=== PATIENT | male | born 1940 | race Two or more races ===

== ENCOUNTER 2021-04-29 13:49 | Inpatient (IN) | payer MEDICARE, OTHER, SELFPAY ==
[2021-04-29] VITALS (12 sets, daily range): BP systolic 90–139; BP diastolic 42–83; PULSE 64–84; RESP 12–24; TEMP 36.3–36.4; O2SAT 94–100; BMI 28.9; BMI 26.6
--- NOTE | ~2021-04-29 | CT_ITS ---
EXAMINATION: CT HEAD WITHOUT CONTRAST CLINICAL INFORMATION: Altered mental status COMPARISON: None. TECHNIQUE: Contiguous axial imaging was performed from the skull base to vertex without intravenous contrast. This CT examination was performed using dose optimization techniques as appropriate, variously including the following: * Automated exposure control * Adjustment of mA and/or kV according to patient size (this includes techniques or standardized protocols for targeted exams where dose is matched to indication/reason for exam; i.e. extremities or head) Use of iterative reconstruction technique DLP: 785 mGy-cm. FINDINGS: There is no evidence of acute intracranial hemorrhage or territorial infarction. No abnormal mass effect or midline shift is seen. Baig to white matter differentiation is well preserved. No extra-axial fluid collections are identified. No hydrocephalus. Proportional prominence of the ventricles and sulcal spaces is consistent with mild volume loss. Patchy periventricular and deep white matter hypoattenuation is consistent with mild small vessel ischemic changes. The osseous structures and soft tissues are normal. The mastoid air cells and visualized portions of the paranasal sinuses are well aerated. CT/CT head/brain wo con IMPRESSION: No acute intracranial pathology. Mild volume loss and small vessel ischemic change.
--- NOTE | ~2021-04-29 | XR_ITS ---
EXAMINATION: XR CHEST CLINICAL INFORMATION: Altered mental status COMPARISON: None TECHNIQUE: Frontal view of the chest was obtained. FINDINGS: The lungs are well expanded. There is no focal consolidation, edema, or effusion. Bronchial wall thickening noted throughout. No pneumothorax. The cardiomediastinal silhouette is within normal limits of size with a calcified aorta. No acute osseous abnormality. XR/XR chest 1V IMPRESSION: No consolidation. Bronchial wall thickening can be seen with a small airways process such as asthma or atypical/viral infection.
--- NOTE | 2021-04-29 13:56 | ECG_ITS ---
Test Reason : UNRESPONSIVE Blood Pressure : / mmHG Vent. Rate : 059 BPM Atrial Rate : 000 BPM P-R Int : 000 ms QRS Dur : 084 ms QT Int : 476 ms P-R-T Axes : 000 006 -02 degrees QTc Int : 471 ms Atrial fibrillation with slow ventricular response Low voltage QRS Nonspecific T wave abnormality Inferior leads Abnormal ECG no previous ekg Referred By: Renata Higginbotham Electronically Signed By:CHELLE COELLO MD
--- NOTE | 2021-04-29 14:04 | ED_ITS ---
HPI - Altered Mental Status General Chief Complaint: General Medical Stated Complaint: ?overdose Time Seen by Provider: 04/29/21 13:55 Source: EMS Mode of arrival: EMS Limitations: altered mental status History of Present Illness complaint: altered mental status Onset (ago): unknown (sometime this AM after taking medications) Timing confirmed by: family member ( told EMS ) Severity: severe Consistency of symptoms: constant Context: other (was reportedly not well last night and then took AM medications since then unable to wake him up EMS called this afternoon) Associated symptoms: denies other symptoms Related Data Home Medications Medication Instructions Recorded Confirmed diltiazem HCl 120 mg 120 mg PO DAILY 04/29/21 04/29/21 capsule,extended release 24 hr, controlled (DILT-XR) fluoxetine 20 mg capsule 20 mg PO DAILY 04/29/21 04/29/21 fluticasone fur. 200 mcg-umeclid 1 puff INHALATION DAILY 04/29/21 04/29/21 62.5 mcg-vilant 25 mcg inhalat.powder (Trelegy Ellipta) fluticasone propionate 50 1 spray INTRANASAL BID 04/29/21 04/29/21 mcg/actuation nasal spray,suspension levothyroxine 75 mcg tablet 75 mcg PO DAILY 04/29/21 04/29/21 metoprolol tartrate 50 mg tablet 50 mg PO BID 04/29/21 04/29/21 rivaroxaban 20 mg tablet (Xarelto) 20 mg PO BEDTIME 04/29/21 04/29/21 rosuvastatin 5 mg tablet 5 mg PO DAILY 04/29/21 04/29/21 zolpidem 10 mg tablet 10 mg PO BEDTIME PRN 04/29/21 04/29/21 Allergies Allergy/AdvReac Type Severity Reaction Status Date / Time Penicillins Allergy Unknown Unknown Verified 04/29/21 13:55 [id number] Reductase Allergy Unknown Unknown Verified 04/29/21 14:06 Inhibitor Review of Systems Review of Systems: ROS unable to be obtained due to altered mental status [facility] Past Medical History Medical History (Updated 04/29/21 @ 16:25 by Renata Higginbotham DO) Afib COPD (chronic obstructive pulmonary disease) Depression HLD (hyperlipidemia) HTN (hypertension) Social History Social History (Updated 04/29/21 @ 14:07 by Renata Higginbotham DO) Patient Tobacco Use Status: Tobacco use Unknown Use of substances other than those prescribed or required for medical reasons: Unable to respond Advance Directives: No Advance Directives Information Provided: No Physical Exam Vital Signs: Vital Signs: Last Vital Signs Temp 97.3 F 04/29/21 14:36 Pulse 84 04/29/21 16:08 Resp 24 H 04/29/21 16:08 BP 112/70 04/29/21 16:08 Pulse Ox 95 04/29/21 16:08 Body Mass Index 26.6 Appearance: Somnolent, Snoring respiration, no response to painful stimuli. Severe acute distress. Eyes: Pupils pinpoint ENT: Pharynx snoring respirations Neck: Normal inspection. Neck supple. CVS: irregular heart rate and rhythm. Pulses normal. Respiratory: No respiratory distress. Breath sounds normal. Abdomen: Soft and nontender. no signs of trauma Skin: Skin warm and dry. pale skin color. Normal skin turgor. Extremities: No lower extremity edema. Neuro: no response to verbal or tactile stimuli, snoring respirations Course Course Course Narrative: patient seems to be more responsive and responding to IV attempts he is withdrawing both RUE and LUE at this time patient waking up more to voice now and his name, he is able to produce a cough when asked still very somnolent records from [facility] requested 220pm patient is obese his IBW is 82kg - 82kg x 30cc = 2459 female [employer] business [employer] notes he has been very depressed recently and thinks he took his ambien today signed out pending he wakes up - good response to IVF patient more easily woken MDM - Altered Mental Status MDM Narrative Medical decision making narrative: 80 yo male not known to this facility per medications hx of afib, HLD, COPD on trelegy, HTN, takes ambien for sleep - comes in with being unresponsive since this AM. I am not sure of CODE status I do not have a contact number or family member present. He was sent straight to head CT for ICH. Pinpoint pupils narcan ordered. Unsure of this is toxic, ICH, metabolic or retention. Will workup for all at this time. Will attempt to reach family as well for CODE status - EMS unsure. Lab Data Result diagrams: 04/29/21 14:16 04/29/21 14:16 Labs: Lab Results 04/29/21 04/29/21 04/29/21 Range/Units 14:00 14:16 14:16 WBC 6.0 (4.8-10.8) X10*3/uL RBC 5.45 (4.60-5.80) X10*6/uL Hgb 16.8 (14.0-18.0) g/dl Hct 50.0 (42.0-52.0) % MCV 91.7 (80.0-98.0) fL MCH 30.8 (27.0-33.0) pg MCHC 33.6 (31.0-36.0) g/dl RDW 14.3 (11.0-16.0) % Plt Count 200 (160-400) X10*3/uL MPV 9.7 (9.4-12.4) fL Immature Gran % (Auto) 0.2 (0.0-0.4) % Neut % (Auto) 56.4 (45-73) % Lymph % (Auto) 28.6 (20-40) % [place] % (Auto) 11.8 H (2-11) % Eos % (Auto) 2.8 (0-4) % Baso % (Auto) 0.2 (0-2) % Lymph # (Auto) 1.7 (1.2-4.9) X10*3/uL [place] # (Auto) 0.7 (0.1-1.2) X10*3/uL Eos # (Auto) 0.2 (0.0-0.4) X10*3/uL Baso # (Auto) 0.0 (0.0-0.2) X10*3/uL Abs Immat Gran (auto) 0.01 (0.00-0.03) X10*3/uL Absolute Neuts (auto) 3.4 (2.0-8.3) x10*3/uL Absolute Nucleated RBC 0.000 (0.0-0.012) X10*3/uL Nucleated RBC % (auto) 0.0 (0.0-0.2) /100WBC O2 Saturation % ABG pH at Pt Temp (7.35-7.45) ABG pH (Temp Correct) (7.35-7.45) ABG pCO2 at Pt Temp (32-45) mmHg ABG pCO2 (Temp Corrct (32-45) mmHg ABG pO2 at Pt Temp (83-108) mmHg ABG pO2 (Temp Correct (83-108) ABG HCO3 (22-26) mmol/L ABG Base Excess (Actual) mmol/L VBG pH (7.32-7.43) VBG pCO2 mmHg VBG pO2 mmHg VBG HCO3 (22-26) mmol/L VBG O2 Saturation % VBG Base Excess mmol/L Sodium 138 (135-145) mmol/L Potassium 4.1 (3.3-5.1) mmol/L Chloride 104 (96-108) mmol/L Carbon Dioxide 29 (22-29) mmol/L Anion Gap 9 L (12-20) BUN 13 (9-16) mg/dL Creatinine 0.87 (0.5-1.4) mg/dL Estim Creat Clear Calc 77.4 Estimated GFR > 60 POC Glucose 92 (60-115) mg/dL Random Glucose 106 (60-115) mg/dL Lactic Acid (0.5-2.0) mmol/L Calcium 8.0 L (8.4-10.2) mg/dL Magnesium 2.0 (1.6-2.6) mg/dL Total Bilirubin 0.9 (0.0-1.0) mg/dL Direct Bilirubin 0.3 (0.0-0.5) mg/dL AST 24 (5-37) U/L ALT 24 (0-40) U/L Alkaline Phosphatase 61 (39-117) U/L Ammonia (13-55) umol/L Total Creatine Kinase 38 (38-174) U/L Troponin I High Sens (<3.5-35.0) ng/L B-Natriuretic Peptide (<100) pg/mL Total Protein 5.3 L (6.5-8.0) g/dL Albumin 3.4 L (3.5-5.0) g/dL Lipase 10 (8-78) U/L Urine Color Urine Appearance Urine pH (5.0-8.0) Ur Specific [place] (1.005-1.025) Urine Protein (NEG-TRACE) MG/DL Urine Glucose (UA) (NEG) MG/DL Urine Ketones (NEG) MG/DL Urine Blood (NEG) Urine Nitrite (NEG) Ur Leukocyte Esterase (NEG) Salicylates < 5.0 L (15-30) mg/dL Urine Opiates Screen (Not Detect) Urine Fentanyl Screen (Not Detect) Acetaminophen < 1 (<30) mcg/mL Ur Barbiturates Screen (Not Detect) Ur Phencyclidine Scrn (Not Detect) Ur Amphetamines Screen (Not Detect) U Benzodiazepines Scrn (Not Detect) Urine Cocaine Screen (Not Detect) U Marijuana (THC) Screen (Not Detect) Ethyl Alcohol mg/dL COVID-19 ([facility]) (Negative) COVID-19 Clin Com 04/29/21 04/29/21 04/29/21 Range/Units 14:16 14:16 14:16 WBC (4.8-10.8) X10*3/uL RBC (4.60-5.80) X10*6/uL Hgb (14.0-18.0) g/dl Hct (42.0-52.0) % MCV (80.0-98.0) fL MCH (27.0-33.0) pg MCHC (31.0-36.0) g/dl RDW (11.0-16.0) % Plt Count (160-400) X10*3/uL MPV (9.4-12.4) fL Immature Gran % (Auto) (0.0-0.4) % Neut % (Auto) (45-73) % Lymph % (Auto) (20-40) % [place] % (Auto) (2-11) % Eos % (Auto) (0-4) % Baso % (Auto) (0-2) % Lymph # (Auto) (1.2-4.9) X10*3/uL [place] # (Auto) (0.1-1.2) X10*3/uL Eos # (Auto) (0.0-0.4) X10*3/uL Baso # (Auto) (0.0-0.2) X10*3/uL Abs Immat Gran (auto) (0.00-0.03) X10*3/uL Absolute Neuts (auto) (2.0-8.3) x10*3/uL Absolute Nucleated RBC (0.0-0.012) X10*3/uL Nucleated RBC % (auto) (0.0-0.2) /100WBC O2 Saturation % ABG pH at Pt Temp (7.35-7.45) ABG pH (Temp Correct) (7.35-7.45) ABG pCO2 at Pt Temp (32-45) mmHg ABG pCO2 (Temp Corrct (32-45) mmHg ABG pO2 at Pt Temp (83-108) mmHg ABG pO2 (Temp Correct (83-108) ABG HCO3 (22-26) mmol/L ABG Base Excess (Actual) mmol/L VBG pH (7.32-7.43) VBG pCO2 mmHg VBG pO2 mmHg VBG HCO3 (22-26) mmol/L VBG O2 Saturation % VBG Base Excess mmol/L Sodium (135-145) mmol/L Potassium (3.3-5.1) mmol/L Chloride (96-108) mmol/L Carbon Dioxide (22-29) mmol/L Anion Gap (12-20) BUN (9-16) mg/dL Creatinine (0.5-1.4) mg/dL Estim Creat Clear Calc Estimated GFR POC Glucose (60-115) mg/dL Random Glucose (60-115) mg/dL Lactic Acid 0.8 (0.5-2.0) mmol/L Calcium (8.4-10.2) mg/dL Magnesium (1.6-2.6) mg/dL Total Bilirubin (0.0-1.0) mg/dL Direct Bilirubin (0.0-0.5) mg/dL AST (5-37) U/L ALT (0-40) U/L Alkaline Phosphatase (39-117) U/L Ammonia (13-55) umol/L Total Creatine Kinase (38-174) U/L Troponin I High Sens 3.7 (<3.5-35.0) ng/L B-Natriuretic Peptide 189 H (<100) pg/mL Total Protein (6.5-8.0) g/dL Albumin (3.5-5.0) g/dL Lipase (8-78) U/L Urine Color Urine Appearance Urine pH (5.0-8.0) Ur Specific [place] (1.005-1.025) Urine Protein (NEG-TRACE) MG/DL Urine Glucose (UA) (NEG) MG/DL Urine Ketones (NEG) MG/DL Urine Blood (NEG) Urine Nitrite (NEG) Ur Leukocyte Esterase (NEG) Salicylates (15-30) mg/dL Urine Opiates Screen (Not Detect) Urine Fentanyl Screen (Not Detect) Acetaminophen (<30) mcg/mL Ur Barbiturates Screen (Not Detect) Ur Phencyclidine Scrn (Not Detect) Ur Amphetamines Screen (Not Detect) U Benzodiazepines Scrn (Not Detect) Urine Cocaine Screen (Not Detect) U Marijuana (THC) Screen (Not Detect) Ethyl Alcohol mg/dL COVID-19 ([facility]) Negative (Negative) COVID-19 Clin Com See Note 04/29/21 04/29/21 04/29/21 Range/Units 14:16 14:17 14:23 WBC (4.8-10.8) X10*3/uL RBC (4.60-5.80) X10*6/uL Hgb (14.0-18.0) g/dl Hct (42.0-52.0) % MCV (80.0-98.0) fL MCH (27.0-33.0) pg MCHC (31.0-36.0) g/dl RDW (11.0-16.0) % Plt Count (160-400) X10*3/uL MPV (9.4-12.4) fL Immature Gran % (Auto) (0.0-0.4) % Neut % (Auto) (45-73) % Lymph % (Auto) (20-40) % [place] % (Auto) (2-11) % Eos % (Auto) (0-4) % Baso % (Auto) (0-2) % Lymph # (Auto) (1.2-4.9) X10*3/uL [place] # (Auto) (0.1-1.2) X10*3/uL Eos # (Auto) (0.0-0.4) X10*3/uL Baso # (Auto) (0.0-0.2) X10*3/uL Abs Immat Gran (auto) (0.00-0.03) X10*3/uL Absolute Neuts (auto) (2.0-8.3) x10*3/uL Absolute Nucleated RBC (0.0-0.012) X10*3/uL Nucleated RBC % (auto) (0.0-0.2) /100WBC O2 Saturation % ABG pH at Pt Temp (7.35-7.45) ABG pH (Temp Correct) (7.35-7.45) ABG pCO2 at Pt Temp (32-45) mmHg ABG pCO2 (Temp Corrct (32-45) mmHg ABG pO2 at Pt Temp (83-108) mmHg ABG pO2 (Temp Correct (83-108) ABG HCO3 (22-26) mmol/L ABG Base Excess (Actual) mmol/L VBG pH 7.36 (7.32-7.43) VBG pCO2 48 mmHg VBG pO2 46 mmHg VBG HCO3 27 H (22-26) mmol/L VBG O2 Saturation 71.0 % VBG Base Excess 1.5 mmol/L Sodium (135-145) mmol/L Potassium (3.3-5.1) mmol/L Chloride (96-108) mmol/L Carbon Dioxide (22-29) mmol/L Anion Gap (12-20) BUN (9-16) mg/dL Creatinine (0.5-1.4) mg/dL Estim Creat Clear Calc Estimated GFR POC Glucose (60-115) mg/dL Random Glucose (60-115) mg/dL Lactic Acid (0.5-2.0) mmol/L Calcium (8.4-10.2) mg/dL Magnesium (1.6-2.6) mg/dL Total Bilirubin (0.0-1.0) mg/dL Direct Bilirubin (0.0-0.5) mg/dL AST (5-37) U/L ALT (0-40) U/L Alkaline Phosphatase (39-117) U/L Ammonia 17 (13-55) umol/L Total Creatine Kinase (38-174) U/L Troponin I High Sens (<3.5-35.0) ng/L B-Natriuretic Peptide (<100) pg/mL Total Protein (6.5-8.0) g/dL Albumin (3.5-5.0) g/dL Lipase (8-78) U/L Urine Color Urine Appearance Urine pH (5.0-8.0) Ur Specific [place] (1.005-1.025) Urine Protein (NEG-TRACE) MG/DL Urine Glucose (UA) (NEG) MG/DL Urine Ketones (NEG) MG/DL Urine Blood (NEG) Urine Nitrite (NEG) Ur Leukocyte Esterase (NEG) Salicylates (15-30) mg/dL Urine Opiates Screen (Not Detect) Urine Fentanyl Screen (Not Detect) Acetaminophen (<30) mcg/mL Ur Barbiturates Screen (Not Detect) Ur Phencyclidine Scrn (Not Detect) Ur Amphetamines Screen (Not Detect) U Benzodiazepines Scrn (Not Detect) Urine Cocaine Screen (Not Detect) U Marijuana (THC) Screen (Not Detect) Ethyl Alcohol < 10 mg/dL COVID-19 ([facility]) (Negative) COVID-19 Clin Com 04/29/21 04/29/21 04/29/21 Range/Units 14:25 14:50 14:51 WBC (4.8-10.8) X10*3/uL RBC (4.60-5.80) X10*6/uL Hgb (14.0-18.0) g/dl Hct (42.0-52.0) % MCV (80.0-98.0) fL MCH (27.0-33.0) pg MCHC (31.0-36.0) g/dl RDW (11.0-16.0) % Plt Count (160-400) X10*3/uL MPV (9.4-12.4) fL Immature Gran % (Auto) (0.0-0.4) % Neut % (Auto) (45-73) % Lymph % (Auto) (20-40) % [place] % (Auto) (2-11) % Eos % (Auto) (0-4) % Baso % (Auto) (0-2) % Lymph # (Auto) (1.2-4.9) X10*3/uL [place] # (Auto) (0.1-1.2) X10*3/uL Eos # (Auto) (0.0-0.4) X10*3/uL Baso # (Auto) (0.0-0.2) X10*3/uL Abs Immat Gran (auto) (0.00-0.03) X10*3/uL Absolute Neuts (auto) (2.0-8.3) x10*3/uL Absolute Nucleated RBC (0.0-0.012) X10*3/uL Nucleated RBC % (auto) (0.0-0.2) /100WBC O2 Saturation 93.0 % ABG pH at Pt Temp 7.41 (7.35-7.45) ABG pH (Temp Correct) 7.42 (7.35-7.45) ABG pCO2 at Pt Temp 38 (32-45) mmHg ABG pCO2 (Temp Corrct 37 (32-45) mmHg ABG pO2 at Pt Temp 72 L (83-108) mmHg ABG pO2 (Temp Correct 69 L (83-108) ABG HCO3 24 (22-26) mmol/L ABG Base Excess (Actual) 0.5 mmol/L VBG pH (7.32-7.43) VBG pCO2 mmHg VBG pO2 mmHg VBG HCO3 (22-26) mmol/L VBG O2 Saturation % VBG Base Excess mmol/L Sodium (135-145) mmol/L Potassium (3.3-5.1) mmol/L Chloride (96-108) mmol/L Carbon Dioxide (22-29) mmol/L Anion Gap (12-20) BUN (9-16) mg/dL Creatinine (0.5-1.4) mg/dL Estim Creat Clear Calc Estimated GFR POC Glucose (60-115) mg/dL Random Glucose (60-115) mg/dL Lactic Acid (0.5-2.0) mmol/L Calcium (8.4-10.2) mg/dL Magnesium (1.6-2.6) mg/dL Total Bilirubin (0.0-1.0) mg/dL Direct Bilirubin (0.0-0.5) mg/dL AST (5-37) U/L ALT (0-40) U/L Alkaline Phosphatase (39-117) U/L Ammonia (13-55) umol/L Total Creatine Kinase (38-174) U/L Troponin I High Sens (<3.5-35.0) ng/L B-Natriuretic Peptide (<100) pg/mL Total Protein (6.5-8.0) g/dL Albumin (3.5-5.0) g/dL Lipase (8-78) U/L Urine Color YELLOW Urine Appearance HAZY Urine pH 6.0 (5.0-8.0) Ur Specific [place] >= 1.030 H (1.005-1.025) Urine Protein NEG (NEG-TRACE) MG/DL Urine Glucose (UA) NEG (NEG) MG/DL Urine Ketones NEG (NEG) MG/DL Urine Blood NEG (NEG) Urine Nitrite NEG (NEG) Ur Leukocyte Esterase NEG (NEG) Salicylates (15-30) mg/dL Urine Opiates Screen Not Detected (Not Detect) Urine Fentanyl Screen Not Detected (Not Detect) Acetaminophen (<30) mcg/mL Ur Barbiturates Screen Not Detected (Not Detect) Ur Phencyclidine Scrn Not Detected (Not Detect) Ur Amphetamines Screen Not Detected (Not Detect) U Benzodiazepines Scrn Not Detected (Not Detect) Urine Cocaine Screen Not Detected (Not Detect) U Marijuana (THC) Screen Not Detected (Not Detect) Ethyl Alcohol mg/dL COVID-19 ([facility]) (Negative) COVID-19 Clin Com ECG Data ECG #1: Attestation: I personally reviewed and interpreted this ECG as follows: ECG interpretation date: 04/29/21 ECG interpretation time: 14:30 Interpretation: Rate: 59 Rhythm: afib with slow ventricular response Braham: left Normal QRS complex. ST T wave : nonspecific, no [place] qTC: normal prior studies: no prior The study has been interpreted contemporaneously by me. . Critical Care Time Critical Care Time Critical Care Time: Yes Total Critical Care Time: 60 Attestation: repeat assessments, frequent checks, discussion with partner I attest to this time spent taking care of the patient Discharge Plan Discharge Clinical Impression: Somnolence Overdose Qualifiers: Encounter type: initial encounter Injury intent: undetermined intent Qualified Code(s): T50.904A - Poisoning by unspecified drugs, medicaments and biological substances, undetermined, initial encounter Prescriptions: No Action levothyroxine 75 mcg tablet 75 mcg PO DAILY RF: 0 diltiazem HCl [DILT-XR] 120 mg capsule,ext.rel 24h degradable 120 mg PO DAILY RF: 0 metoprolol tartrate 50 mg tablet 50 mg PO BID RF: 0 zolpidem 10 mg tablet 10 mg PO BEDTIME PRN (Reason: Sleep) RF: 0 fluoxetine 20 mg capsule 20 mg PO DAILY RF: 0 fluticasone propionate 50 mcg/actuation spray,suspension 1 spray intranasal BID RF: 0 rosuvastatin 5 mg tablet 5 mg PO DAILY RF: 0 Xarelto 20 mg tablet 20 mg PO BEDTIME RF: 0 Trelegy Ellipta 200-62.5-25 mcg blister with device 1 puff inhalation DAILY RF: 0
[2021-04-29 14:16] LABS: Glucose, Whole Blood 92 mg/dL (60-115)
[2021-04-29 14:26] LABS: Basophils Percent Auto 0.2 % (0-2); Eosinophils Absolute Auto 0.2 X10*3/uL (0.0-0.4); Eosinophils Percent Auto 2.8 % (0-4); Hemoglobin 16.8 g/dl (14.0-18.0); Imm Gran Abs Auto 0.01 X10*3/uL (0.00-0.03); Imm Gran Pct Auto 0.2 % (0.0-0.4); Lymphocytes Absolute Auto 1.7 X10*3/uL (1.2-4.9); Lymphocytes Percent Auto 28.6 % (20-40); MANUAL DIFF FLAG NO; Mean Corpuscular HGB Conc 33.6 g/dl (31.0-36.0); Mean Corpuscular Hemoglobin 30.8 pg (27.0-33.0); Mean Corpuscular Volume 91.7 fL (80.0-98.0); Mean Platelet Volume 9.7 fL (9.4-12.4); Monocytes Absolute Auto 0.7 X10*3/uL (0.1-1.2); Monocytes Percent Auto 11.8 % (2-11); Neutrophils Absolute Auto 3.4 x10*3/uL (2.0-8.3); Neutrophils Percent Auto 56.4 % (45-73); Platelet Count 200 X10*3/uL (160-400); Red Blood Count 5.45 X10*6/uL (4.60-5.80); Red Cell Distribution Width 14.3 % (11.0-16.0)
[2021-04-29 14:31] LABS: Venous Blood Gas Refer to POC result
[2021-04-29 14:31] LABS: ABG Base Excess 0.5 mmol/L; ABG HCO3 24 mmol/L (22-26); ABG pCO2 38 mmHg (32-45); ABG pCO2 TC 37 mmHg (32-45); ABG pH 7.41 (7.35-7.45); ABG pH TC 7.42 (7.35-7.45); ABG pO2 72 mmHg (83-108); ABG pO2 TC 69 (83-108)
[2021-04-29 14:31] LABS: VBG Base Excess 1.5 mmol/L; VBG HCO3 27 mmol/L (22-26); VBG pCO2 48 mmHg; VBG pH 7.36 (7.32-7.43); VBG pO2 46 mmHg
[2021-04-29 14:37] LABS: Ammonia 17 umol/L (13-55)
[2021-04-29 14:38] LABS: Lactic Acid 0.8 mmol/L (0.5-2.0)
[2021-04-29 14:41] LABS: Ethanol < 10 mg/dL
[2021-04-29] MEDS: 0.9 % Sodium Chloride 1,000 ML 999 ML IVCONT ×2 (14:42→14:57)
[2021-04-29] MEDS: 0.9 % Sodium Chloride 500 ML IV (14:44)
[2021-04-29 14:45] LABS: Acetaminophen LAB < 1 mcg/mL (<30); Alanine Aminotransferase 24 U/L (0-40); Albumin Level 3.4 g/dL (3.5-5.0); Alkaline Phosphatase 61 U/L (39-117); Anion Gap 9 (12-20); Aspartate Amino Transferase 24 U/L (5-37); Bilirubin Direct 0.3 mg/dL (0.0-0.5); Bilirubin Total 0.9 mg/dL (0.0-1.0); Blood Urea Nitrogen 13 mg/dL (9-16); Carbon Dioxide 29 mmol/L (22-29); Chloride 104 mmol/L (96-108); Creatinine Clr Calc Pharmacy 77.4; Estimated Glomerular Filt Rate > 60; Glucose Random 106 mg/dL (60-115); Lipase 10 U/L (8-78); Potassium 4.1 mmol/L (3.3-5.1); Sodium 138 mmol/L (135-145); Total Protein 5.3 g/dL (6.5-8.0)
[2021-04-29 14:46] LABS: ABG Refer to POC result
[2021-04-29 14:47] LABS: B Type Natriuretic Peptide 189 pg/mL (<100); Troponin-I High Sensitivity 3.7 ng/L (<3.5-35.0)
[2021-04-29 14:50] LABS: COVID-19 Test Negative (Negative)
[2021-04-29] MEDS: Naloxone HCl 2 MG/2 ML SYRINGE 1 MG IVPUSH (14:52)
--- NOTE | 2021-04-29 14:53 | PC.NURSE ---
[employer] COUNTER REPRESENTATIVE
[2021-04-29 14:56] LABS: Salicylate < 5.0 mg/dL (15-30)
[2021-04-29] MEDS: Naloxone HCl Nasal 4 MG SPRAY NOSTRILALT (14:56)
[2021-04-29 14:58] LABS: Appearance Urine HAZY; Color Urine YELLOW; Glucose Urine UA NEG (NEG); Leukocyte Esterase Urine NEG (NEG); Nitrite Urine NEG (NEG); Specific Gravity - Urine >= 1.030 (1.005-1.025); Urine Blood NEG (NEG); Urine Ketones NEG (NEG); Urine Protein NEG (NEG-TRACE)
[2021-04-29] MEDS: cefEPime HCl 2 GM in 0.9 % Sodium Chloride 50 ML IV (14:58)
[2021-04-29 15:13] LABS: Amphetamine Screen Urine Not Detected (Not Detect); Barbiturates, Urine Not Detected (Not Detect); Benzodiazepines Screen Urine Not Detected (Not Detect); Cannabinoid Screen Urine Not Detected (Not Detect); Cocaine Screen Urine Not Detected (Not Detect); Fentanyl, urine Not Detected (Not Detect); Opiate Screen Urine Not Detected (Not Detect); Phencyclidine Screen Urine Not Detected (Not Detect)
--- NOTE | 2021-04-29 15:26 | PHA.MEDREC ---
Pharmacy Consult ? Medication Reconciliation Pharmacy has completed the medication reconciliation.
[2021-04-29 16:33] LABS: INTERNATIONAL NORM RATIO 1.5 (0.9-1.1); Prothrombin Time 17.1 SEC (9.9-13.0)
[2021-04-29 16:36] LABS: Partial Thromboplastin Time 34.9 SEC (24.1-38.0)
--- NOTE | 2021-04-29 16:42 | PC.NURSE ---
Pt's mental status has improved and is arousable to painful stimuli. Pt attempts to make verbal remarks, but pt appears to be confused at this time. Pt is intermittently restless. BP has improved. 2500ml NS has finished infusing. Pt maintaining own airway. Will continue to monitor and pt will ultimately get a crisis eval for a attempted OD, most likely his prescribed ambien.
--- NOTE | 2021-04-29 17:26 | P.HPHOSP_ITS ---
History of Present Illness Date of Service: 04/29/21 <SU Soto - Last Filed: 04/29/21 17:45> Attending physician on admission: Bryaan Hdz <SU Soto - Last Filed: 04/29/21 17:45> Chief Complaint: unarousable <SU Soto - Last Filed: 04/29/21 17:45> This is an 80-year-old male was brought to the emergency department by EMS after significant other found to be unarousable. According to his significant other he has been depressed for the past several weeks. Two weeks ago his brother . He was recently started Prozac for his depression. Last evening he did not sleep well. This morning he woke up and had headache and told the significant other he was tired and wanted to take a nap. After 3 hours he was still sleeping and she became concerned and called the ambulance. In the emergency department he had extensive workup. CT scan of the brain showed no acute abnormalities. Tox screen was negative including salicylates, acetaminophen, alcohol. There is no evidence of infection, patient has been afebrile, labs show no leukocytosis. Urinalysis and chest x-ray both unrema rkable. There is no evidence of renal or hepatic dysfunction. His significant other thinks he may have taken Ambien this morning but she is unsure. He received dose of naloxone with no significant improvement. He received 1 dose of empiric antibiotics. He was observed in the emergency department with no significant improvement in his lethargy in the decision was made to admit him for further monitoring. <SU Soto - Last Filed: 04/29/21 17:45> [facility] Medical History: Medical History Afib COPD (chronic obstructive pulmonary disease) Depression HLD (hyperlipidemia) HTN (hypertension) <SU Soto - Last Filed: 04/29/21 17:45> Pertinent family history: unable to obtain due to mental status <SU Soto - Last Filed: 04/29/21 17:45> Social History: Social History Patient Tobacco Use Status: Tobacco use Unknown Use of substances other than those prescribed or required for medical reasons: Unable to respond Currently Displaying Signs/Symptoms of Drug Intoxication Withdrawal: No Advance Directives: No Advance Directives Information Provided: No Healthcare Proxy: Yes Guardian: No Do you have thoughts of harming others: None Do you have a plan to hurt others: No Plan service: No Current occupational status: retired <SU Soto - Last Filed: 04/29/21 17:45> Meds Allergies/Adverse reactions: Allergies Allergy/AdvReac Type Severity Reaction Status Date / Time Penicillins Allergy Unknown Unknown Verified 04/29/21 13:55 Dxpalwt-YSZ-YsB Reductase Allergy Unknown Unknown Verified 04/29/21 14:06 Inhibitor <SU Soto - Last Filed: 04/29/21 17:45> Active Medications: Current Medications Pharmacy Consult (Consult Rx Perform Med Rec) 1 each MISCELLANE ONCE PRN PRN Reason: Consult order <SU Soto - Last Filed: 04/29/21 17:45> Home medications: Home Medications Medication Instructions Recorded Confirmed Last Taken Type diltiazem HCl 120 mg 120 mg PO DAILY 04/29/21 04/29/21 Unknown History capsule,extended release 24 hr, controlled (DILT-XR) fluoxetine 20 mg capsule 20 mg PO DAILY 04/29/21 04/29/21 Unknown History fluticasone fur. 200 mcg-umeclid 1 puff INHALATION DAILY 04/29/21 04/29/21 Unknown History 62.5 mcg-vilant 25 mcg inhalat.powder (Trelegy Ellipta) fluticasone propionate 50 1 spray INTRANASAL BID 04/29/21 04/29/21 Unknown History mcg/actuation nasal spray,suspension levothyroxine 75 mcg tablet 75 mcg PO DAILY 04/29/21 04/29/21 Unknown History metoprolol tartrate 50 mg tablet 50 mg PO BID 04/29/21 04/29/21 Unknown History rivaroxaban 20 mg tablet (Xarelto) 20 mg PO BEDTIME 04/29/21 04/29/21 Unknown History rosuvastatin 5 mg tablet 5 mg PO DAILY 04/29/21 04/29/21 Unknown History zolpidem 10 mg tablet 10 mg PO BEDTIME PRN 04/29/21 04/29/21 Unknown History <SU Soto - Last Filed: 04/29/21 17:45> Physical Exam Vital Signs and Narrative: Vital Signs: Last Vital Signs Temp 97.3 F 04/29/21 14:36 Pulse 84 04/29/21 16:08 Resp 24 H 04/29/21 16:08 BP 112/70 04/29/21 16:08 Pulse Ox 95 04/29/21 16:08 Body Mass Index 26.6 <SU Soto - Last Filed: 04/29/21 17:45> Const: Other: arousable to verbal stimuli,opening eyes, able to follow simple commands, then falls back asleep quickly <SU Soto - Last Filed: 04/29/21 17:45> General: lethargic <SU Soto - Last Filed: 04/29/21 17:45> Nutritional Appearance: overweight <SU Soto - Last Filed: 04/29/21 17:45> Orientation/consciousness: lethargic <SU Soto - Last Filed: 04/29/21 17:45> HENMT: Other: dry mucous membranes <SU Soto - Last Filed: 04/29/21 17:45> Resp: Other: nonlabored <SU Soto - Last Filed: 04/29/21 17:45> Effort & Inspection: normal respiratory effort <SU Soto - Last Filed: 04/29/21 17:45> Cardio: Rate: bradycardic <SU Soto - Last Filed: 04/29/21 17:45> Rhythm: abnormal rhythm irregularly irregular <SU Soto - Last Filed: 04/29/21 17:45> GI: Inspection: No distended <SU Soto - Last Filed: 04/29/21 17:45> Palpation (GI): Soft to palpation and nontender <SU Soto - Last Filed: 04/29/21 17:45> Skin: Other: bruising left upper forearm <SU Soto - Last Filed: 04/29/21 17:45> Extrem: Other: no leg edema <SU Soto - Last Filed: 04/29/21 17:45> Results Labs CBC and Chem 7: : 04/29/21 14:16 04/29/21 14:16 <SU Soto - Last Filed: 04/29/21 17:45> Labs: Laboratory Results - last 24 hr 04/29/21 04/29/21 04/29/21 14:00 14:16 14:16 MCV 91.7 MCH 30.8 MCHC 33.6 RDW 14.3 Plt Count 200 MPV 9.7 Immature Gran % (Auto) 0.2 Neut % (Auto) 56.4 Lymph % (Auto) 28.6 [place] % (Auto) 11.8 H Eos % (Auto) 2.8 Baso % (Auto) 0.2 Lymph # (Auto) 1.7 [place] # (Auto) 0.7 Eos # (Auto) 0.2 Baso # (Auto) 0.0 Abs Immat Gran (auto) 0.01 Absolute Neuts (auto) 3.4 Absolute Nucleated RBC 0.000 Nucleated RBC % (auto) 0.0 PT INR APTT O2 Saturation ABG pH at Pt Temp ABG pH (Temp Correct) ABG pCO2 at Pt Temp ABG pCO2 (Temp Corrct ABG pO2 at Pt Temp ABG pO2 (Temp Correct ABG HCO3 ABG Base Excess (Actual) VBG pH VBG pCO2 VBG pO2 VBG HCO3 VBG O2 Saturation VBG Base Excess Anion Gap 9 L Estim Creat Clear Calc 77.4 Estimated GFR > 60 POC Glucose 92 Random Glucose 106 Lactic Acid Calcium 8.0 L Magnesium 2.0 Total Bilirubin 0.9 Direct Bilirubin 0.3 AST 24 ALT 24 Alkaline Phosphatase 61 Ammonia Total Creatine Kinase 38 Troponin I High Sens B-Natriuretic Peptide Total Protein 5.3 L Albumin 3.4 L Lipase 10 Urine Color Urine Appearance Urine pH Ur Specific [place] Urine Protein Urine Glucose (UA) Urine Ketones Urine Blood Urine Nitrite Ur Leukocyte Esterase Salicylates < 5.0 L Urine Opiates Screen Urine Fentanyl Screen Acetaminophen < 1 Ur Barbiturates Screen Ur Phencyclidine Scrn Ur Amphetamines Screen U Benzodiazepines Scrn Urine Cocaine Screen U Marijuana (THC) Screen Ethyl Alcohol COVID-19 (JOSE LUIS) COVID-19 Clin Com 04/29/21 04/29/21 04/29/21 14:16 14:16 14:16 MCV MCH MCHC RDW Plt Count MPV Immature Gran % (Auto) Neut % (Auto) Lymph % (Auto) [place] % (Auto) Eos % (Auto) Baso % (Auto) Lymph # (Auto) [place] # (Auto) Eos # (Auto) Baso # (Auto) Abs Immat Gran (auto) Absolute Neuts (auto) Absolute Nucleated RBC Nucleated RBC % (auto) PT INR APTT O2 Saturation ABG pH at Pt Temp ABG pH (Temp Correct) ABG pCO2 at Pt Temp ABG pCO2 (Temp Corrct ABG pO2 at Pt Temp ABG pO2 (Temp Correct ABG HCO3 ABG Base Excess (Actual) VBG pH VBG pCO2 VBG pO2 VBG HCO3 VBG O2 Saturation VBG Base Excess Anion Gap Estim Creat Clear Calc Estimated GFR POC Glucose Random Glucose Lactic Acid 0.8 Calcium Magnesium Total Bilirubin Direct Bilirubin AST ALT Alkaline Phosphatase Ammonia Total Creatine Kinase Troponin I High Sens 3.7 B-Natriuretic Peptide 189 H Total Protein Albumin Lipase Urine Color Urine Appearance Urine pH Ur Specific [place] Urine Protein Urine Glucose (UA) Urine Ketones Urine Blood Urine Nitrite Ur Leukocyte Esterase Salicylates Urine Opiates Screen Urine Fentanyl Screen Acetaminophen Ur Barbiturates Screen Ur Phencyclidine Scrn Ur Amphetamines Screen U Benzodiazepines Scrn Urine Cocaine Screen U Marijuana (THC) Screen Ethyl Alcohol COVID-19 (JOSE LUIS) Negative COVID-19 Clin Com See Note 04/29/21 04/29/21 04/29/21 14:16 14:17 14:23 MCV MCH MCHC RDW Plt Count MPV Immature Gran % (Auto) Neut % (Auto) Lymph % (Auto) [place] % (Auto) Eos % (Auto) Baso % (Auto) Lymph # (Auto) [place] # (Auto) Eos # (Auto) Baso # (Auto) Abs Immat Gran (auto) Absolute Neuts (auto) Absolute Nucleated RBC Nucleated RBC % (auto) PT INR APTT O2 Saturation ABG pH at Pt Temp ABG pH (Temp Correct) ABG pCO2 at Pt Temp ABG pCO2 (Temp Corrct ABG pO2 at Pt Temp ABG pO2 (Temp Correct ABG HCO3 ABG Base Excess (Actual) VBG pH 7.36 VBG pCO2 48 VBG pO2 46 VBG HCO3 27 H VBG O2 Saturation 71.0 VBG Base Excess 1.5 Anion Gap Estim Creat Clear Calc Estimated GFR POC Glucose Random Glucose Lactic Acid Calcium Magnesium Total Bilirubin Direct Bilirubin AST ALT Alkaline Phosphatase Ammonia 17 Total Creatine Kinase Troponin I High Sens B-Natriuretic Peptide Total Protein Albumin Lipase Urine Color Urine Appearance Urine pH Ur Specific [place] Urine Protein Urine Glucose (UA) Urine Ketones Urine Blood Urine Nitrite Ur Leukocyte Esterase Salicylates Urine Opiates Screen Urine Fentanyl Screen Acetaminophen Ur Barbiturates Screen Ur Phencyclidine Scrn Ur Amphetamines Screen U Benzodiazepines Scrn Urine Cocaine Screen U Marijuana (THC) Screen Ethyl Alcohol < 10 COVID-19 (JOSE LUIS) COVID-19 Clin Com 04/29/21 04/29/21 04/29/21 14:25 14:50 14:51 MCV MCH MCHC RDW Plt Count MPV Immature Gran % (Auto) Neut % (Auto) Lymph % (Auto) [place] % (Auto) Eos % (Auto) Baso % (Auto) Lymph # (Auto) [place] # (Auto) Eos # (Auto) Baso # (Auto) Abs Immat Gran (auto) Absolute Neuts (auto) Absolute Nucleated RBC Nucleated RBC % (auto) PT INR APTT O2 Saturation 93.0 ABG pH at Pt Temp 7.41 ABG pH (Temp Correct) 7.42 ABG pCO2 at Pt Temp 38 ABG pCO2 (Temp Corrct 37 ABG pO2 at Pt Temp 72 L ABG pO2 (Temp Correct 69 L ABG HCO3 24 ABG Base Excess (Actual) 0.5 VBG pH VBG pCO2 VBG pO2 VBG HCO3 VBG O2 Saturation VBG Base Excess Anion Gap Estim Creat Clear Calc Estimated GFR POC Glucose Random Glucose Lactic Acid Calcium Magnesium Total Bilirubin Direct Bilirubin AST ALT Alkaline Phosphatase Ammonia Total Creatine Kinase Troponin I High Sens B-Natriuretic Peptide Total Protein Albumin Lipase Urine Color YELLOW Urine Appearance HAZY Urine pH 6.0 Ur Specific [place] >= 1.030 H Urine Protein NEG Urine Glucose (UA) NEG Urine Ketones NEG Urine Blood NEG Urine Nitrite NEG Ur Leukocyte Esterase NEG Salicylates Urine Opiates Screen Not Detected Urine Fentanyl Screen Not Detected Acetaminophen Ur Barbiturates Screen Not Detected Ur Phencyclidine Scrn Not Detected Ur Amphetamines Screen Not Detected U Benzodiazepines Scrn Not Detected Urine Cocaine Screen Not Detected U Marijuana (THC) Screen Not Detected Ethyl Alcohol COVID-19 (JOSE LUIS) COVID-19 Clin Com 04/29/21 16:08 MCV MCH MCHC RDW Plt Count MPV Immature Gran % (Auto) Neut % (Auto) Lymph % (Auto) [place] % (Auto) Eos % (Auto) Baso % (Auto) Lymph # (Auto) [place] # (Auto) Eos # (Auto) Baso # (Auto) Abs Immat Gran (auto) Absolute Neuts (auto) Absolute Nucleated RBC Nucleated RBC % (auto) PT 17.1 H INR 1.5 H APTT 34.9 O2 Saturation ABG pH at Pt Temp ABG pH (Temp Correct) ABG pCO2 at Pt Temp ABG pCO2 (Temp Corrct ABG pO2 at Pt Temp ABG pO2 (Temp Correct ABG HCO3 ABG Base Excess (Actual) VBG pH VBG pCO2 VBG pO2 VBG HCO3 VBG O2 Saturation VBG Base Excess Anion Gap Estim Creat Clear Calc Estimated GFR POC Glucose Random Glucose Lactic Acid Calcium Magnesium Total Bilirubin Direct Bilirubin AST ALT Alkaline Phosphatase Ammonia Total Creatine Kinase Troponin I High Sens B-Natriuretic Peptide Total Protein Albumin Lipase Urine Color Urine Appearance Urine pH Ur Specific [place] Urine Protein Urine Glucose (UA) Urine Ketones Urine Blood Urine Nitrite Ur Leukocyte Esterase Salicylates Urine Opiates Screen Urine Fentanyl Screen Acetaminophen Ur Barbiturates Screen Ur Phencyclidine Scrn Ur Amphetamines Screen U Benzodiazepines Scrn Urine Cocaine Screen U Marijuana (THC) Screen Ethyl Alcohol COVID-19 (JOSE LUIS) COVID-19 Clin Com <SU Soto - Last Filed: 04/29/21 17:45> Imaging Radiologist's Impressions: Impressions Head CT 04/29/21 13:55 IMPRESSION: No acute intracranial pathology. Mild volume loss and small vessel ischemic change. Chest X-Ray 04/29/21 13:57 IMPRESSION: No consolidation. Bronchial wall thickening can be seen with a small airways process such as asthma or atypical/viral infection. <SU Soto - Last Filed: 04/29/21 17:45> Assessment and Plan (1) Encephalopathy: Status: Acute <SU Soto - Last Filed: 04/29/21 17:45> This is an 80-year-old male with history of atrial fibrillation on Xarelto, COPD, hypertension, dyslipidemia hypothyroidism, recent diagnosis of depression who presents to the emergency department after being found unarousable by his significant other Toxic metabolic encephalopathy Still solmnolent Possibly r/t taking ambien this morning no evidence of infection, brain CT negative supportive care IVF Hypothyroidism will check TSH for chronic medical conditions including afib, HLD etc, all medications will be placed on hold until more awake to take medication. DVT ppx - on xarelto at home, but on hold; will add mechanical devices code status - DNR/DNI according to HCP Arina Matute <SU Soto - Last Filed: 04/29/21 17:45> Quality Stroke Does the patient have a stroke diagnosis?: No <SU Soto - Last Filed: 04/29/21 17:45> VTE Prior VTE?: No <SU Soto - Last Filed: 04/29/21 17:45> VTE Risk Level:: Medical - moderate - high <SU Soto - Last Filed: 04/29/21 17:45> VTE Device Contraindication: N/A - Device Ordered <SU Soto - Last Filed: 04/29/21 17:45> VTE Drug Contraindication: Treatment Not Indicated <SU Soto - Last Filed: 04/29/21 17:45>
[2021-04-29] MEDS: Dextrose 5 % and 0.9 % NaCl 1,000 ML 80 ML IVCONT (18:02)
[2021-04-29 18:49] LABS: Thyroid Stimulating Hormone 0.59 uIU/mL (0.32-4.0)
--- NOTE | 2021-04-29 19:19 | PC.NURSE ---
Pt remains asleep in bed at this time, difficult to arouse with painul stimuli. VSS at this time, awaiting room assignment.
--- NOTE | 2021-04-29 22:38 | PC.NURSE ---
This nurse entered PT room to find the PT with his eyes opened and moving arms in bed. This nurse attempted to check the PT's level of orientation but PT is still not responding well to questions. PT requested water at this time. Denies pain.
[2021-04-30] VITALS (10 sets, daily range): BP systolic 104–155; BP diastolic 64–88; PULSE 80–112; RESP 18–26; TEMP 36–37.5; O2SAT 93–100; BMI 27.3
[2021-04-30] MEDS: 0.9 % Sodium Chloride Flush 3 ML SYRINGE IVFLUSH ×3 (00:25→20:55)
--- NOTE | 2021-04-30 01:09 | PC.NURSE ---
PT remains responsive to painful stimuli. PT has not voided during shift. Bladder scan showed 534 mL urine within bladder.
--- NOTE | 2021-04-30 02:24 | PC.NURSE ---
Moise catheter inserted. PT tolerated procedure well. PT become responsive, with incoherent speech, and then fell back asleep.
--- NOTE | 2021-04-30 04:29 | PC.NURSE ---
This RN at bedside for VS. Pt wakes easily but drowsy, speaking full sentences, with garbled speech. states I took 60 Ambien because I don't want to live anymore. Pt states I am in constant pain. Pt unable to elaborate on constant pain. Pt states I am a DNR. I want to be a DNR! VSS at this time, pt requesting water, advised he is NPO. VSS. Saad APONTE calling report to [facility].
--- NOTE | 2021-04-30 04:39 | PC.NURSE ---
Nursing securities vault supervisor contacted regarding sitter status for this PT. PT is on one to one observation for crisis/SI.
--- NOTE | 2021-04-30 04:58 | PC.NURSE ---
PT woke up and stated that he has SI and admits to taking 60 ambien at home. Poison control contacted by this nurse. Poison control stated that PT is beyond the window of concern for this overdose. Once PT returns to baseline plan will be to refer to N crisis.
--- NOTE | 2021-04-30 05:11 | PC.NURSE ---
Report given to [facility] RN. Plan for transfer to floor with sitter.
[2021-04-30] MEDS: Dextrose 5 % and 0.9 % NaCl 1,000 ML 80 ML IVCONT (05:32)
--- NOTE | 2021-04-30 05:53 | PC.NURSE ---
ADMIT TO 479-1 VIA STRETCHER FROM ER DEPT..AWAKE...DISORIENTED...SOME SPEECH GARBLED BUT AT OTHER TIMES UNDERSTANDABLE...OLIVIER WEAKLY TO COMMAND...RESPIRATIONS EASY ON 2 L/M CANNULA...IV D5NS 80 CC/HR...KAUFMAN YELLOW TO LIGHT PINK TINGED URINE...ATRIAL FIB CONTROLLED HR...DENIES PAIN...DOZING WHEN UNSTIMULATED...1:1 SITTER AT BEDSIDE FOR ?SI AND >OD ATTEMPT PER ER REPORT
--- NOTE | 2021-04-30 11:34 | PC.NURSE ---
Addendum entered by Magda Mcqueen RN 04/30/21 11:38: made aware. 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 Pictures taken and placed in chart. EPC barrier cream and pink foam dsg applied. Blanchable redness to surrounding tissue.
[2021-04-30] MEDS: Metoprolol Tartrate 50 MG TABLET PO ×2 (13:22→20:55)
--- NOTE | 2021-04-30 13:43 | MHC.CM.PN ---
CM MET WITH PT WHO REPORTS HE LIVES WITH HIS S/O. PT REPORTS HE IS INDEPENDENT, HAS NO SERVICES AND NO DME PT REPORTS HE WOULD LIKE TO DO A MOLST HE WANTS TO BE DNR NOW THAT HE IS SICK HCP WAS DISCUSSED AND PT IS AWARE CM CAN ASSIST WHEN HE IS FEELING BETTER PT REPORTS INFORMATION CAN BE SHARED WITH HIS S/O, CHARANJIT JAIMES. IMM DELIVERED CURRENTLY DC PLAN IS TBD. HOME VS [facility] TRANSPORT TBD BY DISPO
--- NOTE | 2021-04-30 15:24 | MHC.CARE ---
Addendum entered by Masha Dean LCSW 04/30/21 15:40: Arina reported that she has sold her house and that she and the pt are moving to [place] on May 12. Original Note: CARE team met with pt to complete a crisis evaluation. After consulting with corporate relations director psychiatry re: disposition it was determined that pt will require an inpt psychiatric admission. Collateral contacts were unable to be obtained earlier this afternoon when assessment was completed. This sheet writer contacted pt's partner, Arina [phone]. Arina shared that she had noticed a change in pt's mood last month when his brother's health began to deteriorate rapidly. Since his brother he has been increasingly depressed and stating that he has no one left. Arina said that he had expected to pass away before his brother because he is older than his brother. For the past 3 weeks the pt has been sleeping poorly, getting approximately 3 hours per night from 9pm-12am despite taking sleeping medication and would take occasional naps through the rest of the night and during the day. His appetite and po intake had dramatically changed, with him eating very little and having no appetite. She reported that yesterday he had reported that he wasn't feeling well and planned to take some sleeping medication to get rest. Later when she went to check on him she found that he was not responsive and called EMS. Arina was updated re: the plan for the pt to remain in the hospital on the medical floor until he is able to be transferred to a psychiatric unit for further stabilization. She was given the CARE team phone number to call if she has any questions, concerns, or other pertinent information she would like to share.
--- NOTE | 2021-04-30 16:44 | P.PNIM_ITS ---
Subjective Subjective Date of Service: 05/01/21 Interval History: Patient being followed for acute encephalopathy this morning patient awake alert and admitted that he took unknown tablets ? 6-10 of Ambien in a suicide attempt due to ongoing depression, he feels lonely all of his immediate family members have diseased, he only has nieces and nephews , he feels Prozac is not helping his symptoms, he also complains of buttock pain and intermittent upper extremity pain, runny nose and has chronic diarrhea for which she take high-fiber capsule. Review of Systems General no headache, no dizziness, no fever chills. CVS no chest pain, no palpitation. Respiratory no cough, no sob. Gastrointestinal no nausea, no vomiting, no abdominal pain, chronic diarrhea Review of Systems: Yes all other systems are reviewed and are negative Physical Exam Vital Signs: Vital Signs: Last Vital Signs Temp 99.5 F 04/30/21 14:57 Pulse 87 04/30/21 14:57 Resp 20 04/30/21 14:57 BP 111/68 04/30/21 14:57 Pulse Ox 96 04/30/21 14:57 Body Mass Index 27.3 General awake alert x3no acute distress. Bilateral eyesballs protruding,(Chronic)mild hyperemia, no drainage No facial tenderness to palpation Neck is supple no JVD. CVS regular rate rhythm, Respiratory lungs clear to auscultation, no respiratory distress, no wheeze, no rhonchi. Gastrointestinal abdomen soft, nontender, bowel sounds audible, no rigidity. Extremities no edema. Neuro nonfocal , speech clear. Skin few bruises both upper extremities is stage II ulcer coccyx Psych appropriate affect Objective Data Active Medications Fluticasone Propionate (Fluticasone Propionate Nasal 16 Gm [place]) 1 spray NOSTRIL-B BID [facility] Fluticasone/Vilanterol (Fluticasone/Vilanterol 100/25 Blst.W.Dev) 1 puff INHALE RDAILY [facility] Dextrose/Sodium Chloride (D5ns) 1,000 mls @ 80 mls/hr IVCONT .[id number] [facility] Last Infusion: 04/30/21 10:45 Dose: 0 mls/hr Documented by: SAE Levothyroxine Sodium (Levothyroxine Sodium 75 Mcg Tablet) 75 mcg PO DAILY@0600 [facility] Last Admin: 04/30/21 05:33 Dose: Not Given Documented by: STERLING Non-Admin Reason: NPO Metoprolol Tartrate (Metoprolol Tartrate 50 Mg Tablet) 50 mg PO BID [facility]; Protocol Last Admin: 04/30/21 13:22 Dose: 50 mg Documented by: SAE Non-Formulary Medication (Rosuvastatin) 5 mg PO DAILY [facility] Ondansetron HCl (Ondansetron Hcl 4 Mg/2 Ml Vial) 4 mg IVPUSH Q8H PRN PRN Reason: Nausea and Vomiting Pharmacy Consult (Consult Rx Perform Med Rec) 1 each MISCELLANE ONCE PRN PRN Reason: Consult order Rivaroxaban (Rivaroxaban 20 Mg Tablet) 20 mg PO BEDTIME [facility] Sodium Chloride (0.9 % Sodium Chloride Flush 3 Ml Syringe) 3 ml IVFLUSH QSHIFT [facility] Last Admin: 04/30/21 16:17 Dose: 3 ml Documented by: HIRAM Tiotropium [place] (Tiotropium [place] 18 Mcg Cap.W.Dev) 1 puff INHALE RDAILY [facility] Labs CBC & Chem 7: 04/29/21 14:16 04/29/21 14:16 Labs: Laboratory Results - last 24 hr 04/29/21 14:16 TSH 0.59 Microbiology Microbiology Results: Microbiology 04/29/21 14:36 Blood Culture - Preliminary Blood - Venous No growth after 24 hours. 04/29/21 14:16 Blood Culture - Preliminary Blood - Venous No growth after 24 hours. Assessment and Plan (1) Encephalopathy: Status: Acute (2) Intentional overdose of beta-adrenergic blocking drug: Status: Acute (3) Somnolence: Status: Acute (4) Overdose: Status: Acute Assessment and Plan: 80-year-old male with history of atrial fibrillation on Xarelto, COPD, hypert ension, dyslipidemia hypothyroidism, recent diagnosis of depression who presents to the emergency department after being found unarousable by his significant other Toxic metabolic encephalopathy Resolved, Patient awake alert, was likely related to intentional overdose with Ambien no evidence of infection, brain CT negative DC IV fluid Intentional drug overdose Patient admits to be depressed sleeping less with decreased by mouth intake, generalized pain Patient seen by care team they recommend inpatient psych admission sectioned 12 paper signed Continue supportive care Hypothyroidism TSH normal range continue levothyroxine Hyperlipidemia On Crestor non formulary patient is allergic to other statins Chronic pain Will use Tylenol and added as needed oxycodone low-dose permanent Atrial fibrillation Control metoprolol and Xarelto slow AFib on EKG Chronic diarrhea with negative workup in the past take multiple tablets of high- fiber will place on Metamucil twice daily and use as needed Imodium Decubiti ulcer will recommend frequent position change barrier cream and high- protein diet DVT ppx - on xarelto at home, but on hold; will add mechanical devices code status - DNR/DNI according to HCP Arina aMtute Quality Stroke Does the patient have a stroke diagnosis?: No VTE Prior VTE?: No VTE Risk Level:: Medical - moderate - high VTE Device Contraindication: N/A - Device Ordered VTE Drug Contraindication: Treatment Not Indicated
[2021-04-30] MEDS: Loperamide HCl 2 MG CAPSULE PO (17:50)
[2021-04-30] MEDS: Acetaminophen 325 MG TABLET 650 MG PO (17:50)
[2021-04-30] MEDS: oxyCODONE HCl Immed Release 5 MG TABLET 2.5 MG PO ×2 (17:50→23:43)
[2021-04-30] MEDS: Fluticasone Propionate Nasal 16 GM SPRAY 1 SPRAY NOSTRIL-B (20:55)
[2021-04-30] MEDS: Rivaroxaban 20 MG TABLET PO (20:55)
[2021-05-01 03:13] VITALS: BP 116/68; PULSE 67; RESP 20; TEMP 37.1; O2SAT 98
[2021-05-01] MEDS: oxyCODONE HCl Immed Release 5 MG TABLET 2.5 MG PO ×2 (05:52→11:58)
[2021-05-01] MEDS: Levothyroxine Sodium 75 MCG TABLET PO (05:53)
[2021-05-01 07:28] VITALS: BP 124/66; PULSE 77; RESP 18; TEMP 36; O2SAT 96
[2021-05-01] MEDS: Fluticasone/Vilanterol 100/25 BLST.W.DEV 1 PUFF INHALE (08:17)
[2021-05-01] MEDS: 0.9 % Sodium Chloride Flush 3 ML SYRINGE IVFLUSH (09:11)
[2021-05-01] MEDS: Fluticasone Propionate Nasal 16 GM SPRAY 1 SPRAY NOSTRIL-B (09:11)
[2021-05-01] MEDS: Nystatin Cream 15 GM TUBE 1 APPL TOPICAL (09:11)
[2021-05-01 09:12] VITALS: BP 124/66; PULSE 77
[2021-05-01] MEDS: Metoprolol Tartrate 50 MG TABLET PO (09:12)
--- NOTE | 2021-05-01 10:14 | P.DS_ITS ---
DS: Providers Provider Date of Service: 05/01/21 Date of admission: 04/29/21 17:25 Primary care physician: Tyler Dewitt MD Consults: 04/30/21 11:19 Consult to Crisis Stat Reason for consultation: intentional drug dose Has provider been notified: No 04/30/21 11:25 Consult to Care Team Routine Comment: Reason for consultation: depression intentional drug use DS: Diagnosis Discharge Diagnosis (1) Encephalopathy: Status: Acute (2) Intentional overdose of beta-adrenergic blocking drug: Status: Acute (3) Somnolence: Status: Acute (4) Overdose: Status: Acute DS: Summary Hospital Course Hospital Course: History of presenting illness 80-year-old male was brought to the emergency department by EMS after significant other found to be unarousable.? According to his significant other he has been depressed for the past several weeks.? Two weeks ago his brother .? He was recently started Prozac for his depression.? Last evening he did not sleep well.? This morning he woke up and had headache and told the significant other he was tired and wanted to take a nap.? After 3 hours he was still sleeping and she became concerned and called the ambulance.? In the emergency department he had extensive workup.? CT scan of the brain showed no acute abnormalities.? Tox screen was negative including salicylates, acetaminophen, alcohol.? There is no evidence of infection, patient has been afebrile, labs show no leukocytosis.? Urinalysis and chest x-ray both unr emarkable.? There is no evidence of renal or hepatic dysfunction.? His significant other thinks he may have taken Ambien this morning but she is unsure. He received dose of naloxone with no significant improvement.? He received 1 dose of empiric antibiotics.? He was observed in the emergency department with no significant improvement in his lethargy in the decision was made to admit him for further monitoring.? Hospital course 80-year-old male with history of atrial fibrillation on Xarelto, COPD, hypertension, dyslipidemia hypothyroidism, recent diagnosis of depression who presents to the emergency department after being found unarousable by his significant other patient admitted to medical floor with a diagnosis of Toxic metabolic encephalopathy, all workup in the ER was negative with no evidence of infection CT brain negative, patient treated with IV fluids subsequently next morning patient became more awake alert and admitted using some Ambien unknown quantity of tablets roughly 6-10 with suicidal thoughts since patient brother recently and he has been feeling depressed and wants to be with his brother with greater than 20 lb recent weight loss poor sleep, therefore patient evaluated by care team and is being transferred to [facility] psych for continued monitoring and treatment for severe depression, will hold Ambien and Prozac further treatment plan as per Psychiatry. Other medical issues Hypothyroidism TSH normal range continue levothyroxine Hyperlipidemia. On Crestor non formulary patient is allergic to other statins, therefore will hold Crestor Chronic pain use Tylenol as needed and add oxycodone low-dose as needed Permanent Atrial fibrillation continuel metoprolol and Xarelto slow AFib on EKG, Cardizem discontinued due to stable blood pressure and heart rate Chronic diarrhea with negative workup in the past patient takes multiple tablets of high-fiber at home therefore placed on Metamucil twice daily and Imodium as needed Decubiti ulcer continue frequent position change, barrier cream and high-protein diet. Time Spent with Patient Time attestation: Total time spent providing and/or coordinating discharge services: Discharge coordination time: Greater than 30 minutes Quality: Stroke Does the patient have a stroke diagnosis?: No Physical Exam Vital Signs: Vital Signs: Last Vital Signs Temp 96.8 F 05/01/21 07:28 Pulse 77 05/01/21 09:12 Resp 18 05/01/21 07:28 BP 124/66 05/01/21 09:12 Pulse Ox 96 05/01/21 07:28 Body Mass Index 27.3 General awake alert x3,no acute distress.? Neck is supple no JVD. CVS? regular rate rhythm, Respiratory lungs clear to auscultation, no respiratory distress, no wheeze, no rhonchi. Gastrointestinal abdomen soft, nontender, bowel sounds audible, no rigidity. Extremities no edema. Neuro nonfocal , speech clear. Skin few bruises both upper extremities/ stage II ulcer coccyx DS: Data Data Completed and Pending Labs on day of discharge: Preliminary micro results at discharge 04/29/21 14:36 Blood Culture - Preliminary Blood - Venous No growth after 24 hours. 04/29/21 14:16 Blood Culture - Preliminary Blood - Venous No growth after 24 hours. Discharge Plan Discharge Disposition: Xfer Other Referrals: Tyler Dewitt MD [Primary Care Provider] - 1 Week Discharge Medications: New acetaminophen 325 mg Tablet 650 mg PO Q6H PRN (Reason: Pain, Mild (Pain Scale 1-3)) Qty: 60 RF: 0 loperamide 2 mg Capsule 2 mg PO Q6H PRN (Reason: Diarrhea) Qty: 20 RF: 0 melatonin 3 mg Tablet 6 mg PO BEDTIME PRN (Reason: Insomnia) Qty: 1 RF: 0 nystatin 100,000 unit/gram Cream 1 appl topical BID Qty: 1 RF: 0 Spiriva with HandiHaler 18 mcg Capsule, W/Inhalation Device 18 mcg inhalation RDAILY Qty: 1 RF: 0 Breo Ellipta 100-25 mcg/dose Blister With Device 1 puff inhalation RDAILY Qty: 1 RF: 0 sodium chloride [[place] Nasal] 0.65 % aerosol,spray 1 spray intranasal BID PRN (Reason: dry nasal passages) Qty: 15 RF: 0 Metamucil 3.4 gram/5.4 gram powder 1 tbsp PO BID Qty: 660 RF: 0 Continued levothyroxine 75 mcg tablet 75 mcg PO DAILY RF: 0 metoprolol tartrate 50 mg tablet 50 mg PO BID RF: 0 Xarelto 20 mg tablet 20 mg PO BEDTIME RF: 0 Discontinued diltiazem HCl [DILT-XR] 120 mg capsule,ext.rel 24h degradable 120 mg PO DAILY RF: 0 zolpidem 10 mg tablet 10 mg PO BEDTIME PRN (Reason: Sleep) RF: 0 fluoxetine 20 mg capsule 20 mg PO DAILY RF: 0 fluticasone propionate 50 mcg/actuation spray,suspension 1 spray intranasal BID RF: 0 rosuvastatin 5 mg tablet 5 mg PO DAILY RF: 0 Trelegy Ellipta 200-62.5-25 mcg blister with device 1 puff inhalation DAILY RF: 0 Discharge Orders: Discharge Order (Routine); Ordered 05/01/21 Ordered By: Brayan Hdz Forms: Patient Portal Discharge page Care Plan Goals: Chronic atrial fibrillation continue metoprolol and Xarelto, continue Synthroid, history of chronic diarrhea take high-fiber diet and use Imodium as needed. Crestor. Since non formulary patient cannot tolerate other statins Health Concerns: Insomnia, decreased by mouth intake, coccyx pain, use melatonin, pain medication and supportive question, barrier cream for open area coccyx and frequent position change. Plan of Treatment: Follow-up with [facility] for continued treatment of depression. Assessment: As above
[2021-05-01 11:56] VITALS: BP 139/78; PULSE 74; RESP 18; TEMP 36.3; O2SAT 95
--- NOTE | 2021-05-01 12:41 | MHC.CM.PN ---
PT MEDICALLY CLEARED TODAY AND CURRENTLY AWAITING TRANSFER TO [facility].
== END 2021-05-01 01:35 | disposition other institution (70) | DRG 917 ==
LOC: HO.ED 17:31 → HO.EDOVER 17:52 → HO.IMC 04-30 04:13
PROVIDERS: Admitting Provider Hospitalist; Emergency Provider Emergency Medicine; PCP Internal Medicine; Visit Provider Hospitalist
DX: T44.7X2A Poisoning by beta-adrenoreceptor antagonists, intentional self-harm, initial encounter (principal); G92.8 Other toxic encephalopathy; I48.20 Chronic atrial fibrillation, unspecified; R45.851 Suicidal ideations; Y92.009 Unspecified place in unspecified non-institutional (private) residence as the place of occurrence of the external cause; E03.9 Hypothyroidism, unspecified; E78.5 Hyperlipidemia, unspecified; J44.9 Chronic obstructive pulmonary disease, unspecified; G89.29 Other chronic pain; F32.A Depression, unspecified; K52.9 Noninfective gastroenteritis and colitis, unspecified; E66.9 Obesity, unspecified; L89.152 Pressure ulcer of sacral region, stage 2; Z68.27 Body mass index [BMI] 27.0-27.9, adult; Z20.822 Contact with and (suspected) exposure to COVID-19; Z88.0 Allergy status to penicillin; Z79.01 Long term (current) use of anticoagulants; Z79.51 Long term (current) use of inhaled steroids; Z79.890 Hormone replacement therapy; Z79.899 Other long term (current) drug therapy; Z66 Do not resuscitate
CPT/HCPCS: 36415; 70450; 71045; 80048; 80076; 80143; 80179; 80307; 81003; 82077; 82140; 82550; 82803; 82947; 83605; 83690; 83735; 83880; 84443; 84484; 85025; 85610; 85730; 87040; 87635; 93005; 96361; 96374; 96375; 99285; 99291; J0692

== ENCOUNTER 2021-05-01 14:01 | Inpatient (IN) | payer MEDICARE, OTHER, SELFPAY ==
--- NOTE | 2021-05-01 15:13 | P.HPPS_ITS ---
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 The patient reported that since March 28, after the of his younger brother, he was more dysphoric, with poor sleep, anhedonia, lack of energy, feelings of worthlesness and hopelesness. He also has several medical problems and chronic pain. On April 28, he was feeling worse and he decided impulsively to kill himself with Ambien, he took 8 pills and he was found by her partner who called 911. As per crisis report, he had already sent voicemails/texts of good bye. He was r ushed to the ED, admitted to medicine and after been medically treated, transferred to psychiatry. On interview, the patient admitted depressive symptoms but he denies active suicidal ideation, he feels overwhelmed by physical and emoticnal pain but he is able to contract for safety in the unit. He was interviewed with his partner and adult partner's daughter who corroborated the story. Past Psychiatric History: None Medical Evaluation Reviewed: Yes [facility] Medical History Afib COPD (chronic obstructive pulmonary disease) Depression HLD (hyperlipidemia) HTN (hypertension) Family History: Denies Social History: The patient was raised by parents, he had a good childhood, his milestones were achieved at expected age, he had poor school performance and eventually dropped out school and has worked on several jobs. He was until his , he doesn't have biological children. He is with his current partner for the past 15 years and he has good social support. He usually stays in [place] over the caro Substance History: Denies Trauma History: Denies Meds/Allergies Meds Home Medications Acetaminophen (Acetaminophen 325 Mg Tablet) 650 mg PO Q6H PRN PRN Reason: Headache/Pain Mild Scale (1-3) Al Hydroxide/Mg Hydroxide (Magnesium Hydrox/Alum Hydrox 30 Ml Oral.Susp) 30 ml PO Q6H PRN PRN Reason: Heartburn/Nausea Hydroxyzine HCl (Hydroxyzine Hcl 25 Mg Tablet) 25 mg PO BEDTIME PRN PRN Reason: Anxiety Magnesium Hydroxide (Milk Of Magnesia 30 Ml Oral.Susp) 30 ml PO DAILY PRN PRN Reason: Constipation Mirtazapine (Mirtazapine 7.5 Mg Tablet) 7.5 mg PO BEDTIME [facility] Trazodone HCl (Trazodone Hcl 50 Mg Tablet) 50 mg PO BEDTIME PRN PRN Reason: Insomnia Allergies Allergies Allergy/AdvReac Type Severity Reaction Status Date / Time Penicillins Allergy Unknown Unknown Verified 04/29/21 13:55 [id number] Reductase Allergy Unknown Unknown Verified 04/29/21 14:06 Inhibitor Mental Status Exam Mental Status Exam Patient Appearance: Well Grooomed Patient Orientation: Person and Situation Level of Consciousness: Awake and Appropriate Patient Behavior: Cooperative, Passive and Anxious Mood Description: Depressed Affect Description: Constricted Patient Cognition Impaired: Yes Ability to Follow Directions: Fair Speech Pattern: Clear Hallucinations: None Delusions: Not Present Thought Process: Linear Thought Content: positive for Circumstantial, positive for Preoccupation and positive for Logical Depressive Symptoms: Increased Anxiety and Significant Weight Loss Judgement: Fair Assessment & Plan Assessment & Plan (1) Major depressive disorder: Status: Acute Code(s): F32.9 - Major depressive disorder, single episode, unspecified Assessment and Plan: Elderly male with a recent episode of suicidal ideation with OD on prescription Ambien in the context of several losses, chronic pain and emotional pain. Plan 1. Start Remeron 7.5 mg po qhs 2. Keep rest of medical treatments as usual. 3. Gather collateral information. 4. Reassessment with the team Reason for continued inpatient stay Substantial Risk for: inability to function, rapid decompensation and med/psych decompensation
[2021-05-01] MEDS: oxyCODONE HCl Immed Release 5 MG TABLET 2.5 MG PO ×2 (17:10→23:17)
[2021-05-01] MEDS: Acetaminophen 325 MG TABLET 650 MG PO ×2 (17:11→23:15)
[2021-05-01 21:20] VITALS: BP 131/69; PULSE 95; RESP 20; TEMP 36.2; O2SAT 96
[2021-05-01 21:33] VITALS: BP 131/69; PULSE 95
[2021-05-01] MEDS: Metoprolol Tartrate 50 MG TABLET PO (21:33)
[2021-05-01] MEDS: Rivaroxaban 20 MG TABLET PO (21:34)
[2021-05-01] MEDS: Mirtazapine 7.5 MG TABLET PO (21:34)
[2021-05-01] MEDS: hydrOXYzine HCL 25 MG TABLET PO (21:50)
[2021-05-01] MEDS: Melatonin 3 MG TABLET 6 MG PO (21:52)
[2021-05-02 03:40] VITALS: BMI 31.2
[2021-05-02] MEDS: Levothyroxine Sodium 75 MCG TABLET PO (05:58)
[2021-05-02 07:31] LABS: INTERNATIONAL NORM RATIO 1.9 (0.9-1.1)
[2021-05-02] MEDS: oxyCODONE HCl Immed Release 5 MG TABLET 2.5 MG PO (08:08)
[2021-05-02] MEDS: Metoprolol Tartrate 50 MG TABLET PO ×2 (08:08→21:58)
[2021-05-02] MEDS: Fluticasone/Vilanterol 100/25 BLST.W.DEV 1 PUFF INHALE (09:30)
--- NOTE | 2021-05-02 15:09 | P.PNPSI_ITS ---
Subjective Subjective Date of Service: 05/02/21 Reason For Visit: suicidal attempt Subjective Notes: Conditional Voluntary Interim History: The nursing staff reported that the patient refused to participate on the admission process. He slept fairly well. On interview, the patient reported that he has been on physical pain and he has a lesion on his buttocks. No side effects with mirtazapine and his PT INR are on therapeutic levels Mental Status Exam Mental Status Exam Patient Appearance: Well Grooomed (On hospital gowns) Patient Orientation: Person Level of Consciousness: Awake and Appropriate Patient Behavior: Guarded and Cooperative Mood Description: Depressed Affect Description: Constricted Patient Cognition Impaired: No Ability to Follow Directions: Good Speech Pattern: Appropriate Hallucinations: None Delusions: Not Present Thought Process: Linear Thought Content: positive for Circumstantial Judgement: Fair Diagnostics Vital Signs (24Hr): Vital Signs - 24 hr 05/01/21 21:20 05/01/21 21:33 Temperature 97.2 F Pulse Rate 95 95 Respiratory Rate 20 Blood Pressure 131/69 131/69 Pulse Oximetry 96 Body Mass Index 31.2 Labs Labs: Laboratory Results - last 48 hr 05/02/21 07:10 PT 22.0 H INR 1.9 H Medications Medications Current Medications Acetaminophen (Acetaminophen 325 Mg Tablet) 650 mg PO Q6H PRN PRN Reason: Headache/Pain Mild Scale (1-3) Last Admin: 05/01/21 23:15 Dose: 650 mg Documented by: Al Hydroxide/Mg Hydroxide (Magnesium Hydrox/Alum Hydrox 30 Ml Oral.Susp) 30 ml PO Q6H PRN PRN Reason: Heartburn/Nausea Fluticasone/Vilanterol (Fluticasone/Vilanterol 100/25 Blst.W.Dev) 1 puff INHALE RDAILY [facility] Last Admin: 05/02/21 09:30 Dose: 1 puff Documented by: Hydroxyzine HCl (Hydroxyzine Hcl 25 Mg Tablet) 25 mg PO BEDTIME PRN PRN Reason: Anxiety Last Admin: 05/01/21 21:50 Dose: 25 mg Documented by: Levothyroxine Sodium (Levothyroxine Sodium 75 Mcg Tablet) 75 mcg PO DAILY@0600 [facility] Last Admin: 05/02/21 05:58 Dose: 75 mcg Documented by: Loperamide HCl (Loperamide Hcl 2 Mg Capsule) 2 mg PO Q6H PRN PRN Reason: Diarrhea Magnesium Hydroxide (Milk Of Magnesia 30 Ml Oral.Susp) 30 ml PO DAILY PRN PRN Reason: Constipation Melatonin (Melatonin 3 Mg Tablet) 6 mg PO BEDTIME PRN PRN Reason: Insomnia Last Admin: 05/01/21 21:52 Dose: 6 mg Documented by: Metoprolol Tartrate (Metoprolol Tartrate 50 Mg Tablet) 50 mg PO BID [facility]; Protocol Last Admin: 05/02/21 08:08 Dose: 50 mg Documented by: Mirtazapine (Mirtazapine 15 Mg Tablet) 15 mg PO BEDTIME [facility] Nystatin (Nystatin Cream 15 Gm Tube) 1 appl TOPICAL BID [facility]; Protocol Last Admin: 05/02/21 09:30 Dose: Not Given Documented by: Oxycodone HCl (Oxycodone Hcl Immed Release 5 Mg Tablet) 5 mg PO Q4H PRN PRN Reason: Pain, Moderate Psyllium Hydrophilic Mucilloid (Psyllium Seed 3.4 Gm Powd.Pack) 3.4 gm PO BID [facility] Last Admin: 05/02/21 09:30 Dose: 3.4 gm Documented by: Rivaroxaban (Rivaroxaban 20 Mg Tablet) 20 mg PO BEDTIME [facility] Last Admin: 05/01/21 21:34 Dose: 20 mg Documented by: Sodium Chloride (Sodium Chloride 0.65 % Nasal 44 Ml Sprbtl) 1 spray NOSTRIL-B BID PRN PRN Reason: dry nasal passages Tiotropium [place] (Tiotropium [place] 18 Mcg Cap.W.Dev) 1 puff INHALE RDAILY [facility] Last Admin: 05/02/21 09:30 Dose: 1 puff Documented by: Trazodone HCl (Trazodone Hcl 50 Mg Tablet) 50 mg PO BEDTIME PRN PRN Reason: Insomnia Allergies Allergies Allergy/AdvReac Type Severity Reaction Status Date / Time Penicillins Allergy Unknown Unknown Verified 04/29/21 13:55 [id number] Reductase Allergy Unknown Unknown Verified 04/29/21 14:06 Inhibitor Assessment & Plan Assessment & Plan (1) Major depressive disorder: Status: Acute Code(s): F32.9 - Major depressive disorder, single episode, unspecified Assessment and Plan: Elderly male with a recent episode of suicidal ideation with OD on prescription Ambien in the context of several losses, chronic pain and emotional pain. Plan 1. Increase Remeron up to 15 mg po qhs 2. Increase pain management. 3. Gather collateral information. 4. Reassessment with the team. 5. Wound care consult . I spent minutes with the patient and/or on the patient floor today, greater than?50% of which was spent counseling/coordinating care. Reason for contiued inpatient stay Substantial Risk for: harm to self, rapid decompensation and med/psych decompensation
[2021-05-02] MEDS: oxyCODONE HCl Immed Release 5 MG TABLET PO ×2 (15:42→21:58)
[2021-05-02 16:46] VITALS: BMI 31.2
--- NOTE | 2021-05-02 16:51 | MHC.CLN ---
NUTRITION CONSULT NUTRITION CONSULT FOR STAGE II WOUND TO COCCYX. DIET=REGULAR. ADDED ENSURE TID PER CONVERSATION WITH PATIENT. ENSURE TO PROVIDE 1050 KCAL, 48-60 G PROTEIN. SEE CLINICAL NUTRITION ASSESSMENT.
[2021-05-02 21:40] VITALS: BP 143/70; PULSE 103; RESP 20; TEMP 36.4; O2SAT 97
[2021-05-02] MEDS: Melatonin 3 MG TABLET 6 MG PO (21:57)
[2021-05-02 21:58] VITALS: BP 143/70; PULSE 103
[2021-05-02] MEDS: Rivaroxaban 20 MG TABLET PO (21:58)
[2021-05-02] MEDS: Mirtazapine 15 MG TABLET PO (21:58)
[2021-05-02] MEDS: Sodium Chloride 0.65 % Nasal 44 ML SPRBTL 1 SPRAY NOSTRIL-B (22:04)
[2021-05-03] MEDS: oxyCODONE HCl Immed Release 5 MG TABLET PO ×4 (02:26→18:31)
[2021-05-03] MEDS: Levothyroxine Sodium 75 MCG TABLET PO (05:39)
[2021-05-03 06:00] VITALS: BP 147/71; PULSE 94; TEMP 36.8; O2SAT 94
[2021-05-03] MEDS: Metoprolol Tartrate 50 MG TABLET PO ×2 (08:19→20:06)
[2021-05-03] MEDS: Fluticasone/Vilanterol 100/25 BLST.W.DEV 1 PUFF INHALE (08:19)
--- NOTE | 2021-05-03 08:28 | HO.WOUNDCONS ---
History of Present Illness Data of Consult Service Date: 05/03/21 Requesting physician: Marcio Rosenbaum Primary Care Provider: Unknown Physician HPI Reason for consult: coccyx wound 80 year old male who was having difficulty getting out of bed for several months. Has a documented intention all overdose. He is feeling better now. His appetite is improving. He also had poor hygiene during his made a depressed of episode. Denies fevers. Reports pain in the coccygeal region. It is most bothersome at night. There is no itching. Review of Systems Review of Systems: No chest pain or shortness of breath is reported. Yes all other systems are reviewed and are negative [facility] Medical History (Updated 05/05/21 @ 15:33 by Marcio Rosenbaum) Afib COPD (chronic obstructive pulmonary disease) Decubitus ulcer of coccygeal region, stage 3 Depression HLD (hyperlipidemia) HTN (hypertension) Social History Household Members: Significant Other Housing: Unknown / Unable to assess Do you presently have visiting nurse or other home services: No Unable to assess alcohol history related to: Refusing to respond Patient Tobacco Use Status: Never used Tobacco Use of substances other than those prescribed or required for medical reasons: Refusing to respond Currently Displaying Signs/Symptoms of Drug Intoxication Withdrawal: No Advance Directives: No Advance Directives Information Provided: No Suicidal Behavior: History of suicide attemps Current/Past Psychiatric Disorders: Mood disorder [place] Symptoms: Hopelessness Access to Firearms: Yes Do you have thoughts of harming others: None Do you have a plan to hurt others: No Plan Recently lost weight without trying: No Nutrition Risks: No Nutritional Risk Poor oral hygiene: No service: No Current occupational status: retired Sexual orientation: Straight/Heterosexual Meds Allergies Allergy/AdvReac Type Severity Reaction Status Date / Time Penicillins Allergy Unknown Unknown Verified 04/29/21 13:55 [id number] Reductase Allergy Unknown Unknown Verified 04/29/21 14:06 Inhibitor Active Medications: Current Medications Acetaminophen (Acetaminophen 325 Mg Tablet) 650 mg PO Q6H PRN PRN Reason: Headache/Pain Mild Scale (1-3) Last Admin: 05/01/21 23:15 Dose: 650 mg Documented by: Al Hydroxide/Mg Hydroxide (Magnesium Hydrox/Alum Hydrox 30 Ml Oral.Susp) 30 ml PO Q6H PRN PRN Reason: Heartburn/Nausea Fluticasone/Vilanterol (Fluticasone/Vilanterol 100/25 Blst.W.Dev) 1 puff INHALE RDAILY [facility] Last Admin: 05/02/21 09:30 Dose: 1 puff Documented by: Hydroxyzine HCl (Hydroxyzine Hcl 25 Mg Tablet) 25 mg PO BEDTIME PRN PRN Reason: Anxiety Last Admin: 05/01/21 21:50 Dose: 25 mg Documented by: Levothyroxine Sodium (Levothyroxine Sodium 75 Mcg Tablet) 75 mcg PO DAILY@0600 [facility] Last Admin: 05/03/21 05:39 Dose: 75 mcg Documented by: Loperamide HCl (Loperamide Hcl 2 Mg Capsule) 2 mg PO Q6H PRN PRN Reason: Diarrhea Magnesium Hydroxide (Milk Of Magnesia 30 Ml Oral.Susp) 30 ml PO DAILY PRN PRN Reason: Constipation Melatonin (Melatonin 3 Mg Tablet) 6 mg PO BEDTIME PRN PRN Reason: Insomnia Last Admin: 05/02/21 21:57 Dose: 6 mg Documented by: Metoprolol Tartrate (Metoprolol Tartrate 50 Mg Tablet) 50 mg PO BID [facility]; Protocol Last Admin: 05/02/21 21:58 Dose: 50 mg Documented by: Mirtazapine (Mirtazapine 15 Mg Tablet) 15 mg PO BEDTIME [facility] Last Admin: 05/02/21 21:58 Dose: 15 mg Documented by: Nystatin (Nystatin Cream 15 Gm Tube) 1 appl TOPICAL BID [facility]; Protocol Last Admin: 05/02/21 22:07 Dose: Not Given Documented by: Oxycodone HCl (Oxycodone Hcl Immed Release 5 Mg Tablet) 5 mg PO Q4H PRN PRN Reason: Pain, Moderate Last Admin: 05/03/21 02:26 Dose: 5 mg Documented by: Psyllium Hydrophilic Mucilloid (Psyllium Seed 3.4 Gm Powd.Pack) 3.4 gm PO BID [facility] Last Admin: 05/02/21 22:01 Dose: Not Given Documented by: Rivaroxaban (Rivaroxaban 20 Mg Tablet) 20 mg PO BEDTIME [facility] Last Admin: 05/02/21 21:58 Dose: 20 mg Documented by: Sodium Chloride (Sodium Chloride 0.65 % Nasal 44 Ml Sprbtl) 1 spray NOSTRIL-B BID PRN PRN Reason: dry nasal passages Last Admin: 05/02/21 22:04 Dose: 1 spray Documented by: Tiotropium [place] (Tiotropium [place] 18 Mcg Cap.W.Dev) 1 puff INHALE DAJA AMADO Last Admin: 05/02/21 09:30 Dose: 1 puff Documented by: Trazodone HCl (Trazodone Hcl 50 Mg Tablet) 50 mg PO BEDTIME PRN PRN Reason: Insomnia Home Medications Medication Instructions Recorded Confirmed Last Taken Type levothyroxine 75 mcg tablet 75 mcg PO DAILY 04/29/21 05/01/21 05/01/21 05:55 History 75 mcg metoprolol tartrate 50 mg tablet 50 mg PO BID 04/29/21 05/01/21 05/01/21 09:10 History 50 mg rivaroxaban 20 mg tablet (Xarelto) 20 mg PO BEDTIME 04/29/21 05/01/21 04/30/21 20:55 History 20 mg Physical Exam Vital Signs and Narrative: Vital Signs: Last Vital Signs Temp 97.5 F 05/02/21 21:40 Pulse 103 H 05/02/21 21:58 Resp 20 05/02/21 21:40 BP 143/70 H 05/02/21 21:58 Pulse Ox 97 05/02/21 21:40 Body Mass Index 31.2 Deep within the gluteal crevice at the coccygeal slight, an opening which is full-thickness, stage III is identified. The more posterior gluteal articulation is beginning blanching and does not have the appear of potential DTU due to color. Hygiene is lacking within this fold and denuded epithelium from loose stool may contribute to periwound breakdown. Assessment and Plan (1) Decubitus ulcer of coccygeal region, stage 3: Status: Acute (2) Major depressive disorder: Status: Acute 80 year old male with prolonged downtime and poor nutrition prior to hospitalization, confounded by incontinence with full thickness coccygeal ulcer, non hospital acquired. Signs of improvement are already occurring. Continue to support nutrition with protein supplementation. Improve hygiene with daily shower or wound wash. Silver alginate is most appropriate in the deepest aspect of the wound. Antifungal taking with green/powder combination may be useful of the periwound until loose stools resolve. Outpatient wound clinic followup is recommended. He may wait and seek definitive care in [place] if desired so long as no fever or increased drainage occur. Suspect that with improved mobility and nutrition in place, wound will continue to progress towards healing.
--- NOTE | 2021-05-03 09:26 | PC.NURSE ---
Addendum entered by Juanis Quesada RN 05/06/21 06:52: Mistakenly wrote Stage 2 when it should have said Stage 3 in gluteal cleft. Original Note: Skin/wound assessment completed today. Patient has a skin tear to left hand, Woundres' gel applied covered with gauze and teagaderm. Also, has Stage 2 pressure ulcer on Coccyx and in gluteal cleft. Triad applied covered with foam dressing. No other skin issues noted at this time.
--- NOTE | 2021-05-03 16:02 | HO.PSYCHPN ---
Subjective Subjective Date of Service: 05/03/21 Reason For Visit: suicidal attempt Subjective Notes: Conditional Voluntary Interim History: The nursing staff reported that the patient has been using opioids p.r.n. q.4 hours on the clock. Yesterday he refused to interact with the public health social worker and he has been oppositional. On interview, he complained of pain and constipation, most likely due to opioids. No side effects with Remeron so far. Review of Systems Medical Review of Systems: unchanged Mental Status Exam Mental Status Exam Patient Appearance: Disheveled Patient Orientation: Person, Place and Situation Level of Consciousness: Awake Patient Behavior: Appropriate and Passive Mood Description: Constricted Affect Description: Constricted Patient Cognition Impaired: No Ability to Follow Directions: Good Speech Pattern: Clear Memory Description: Intact Hallucinations: None Delusions: Not Present Thought Process: Distracted and Evasive Thought Content: positive for Circumstantial Judgement: Fair Diagnostics Vital Signs (24Hr): Vital Signs - 24 hr 05/02/21 21:40 05/02/21 21:58 05/03/21 06:00 Temperature 97.5 F 98.2 F Pulse Rate 103 H 103 H 94 Respiratory Rate 20 Blood Pressure 143/70 H 143/70 H 147/71 H Pulse Oximetry 97 94 Body Mass Index 31.2 Labs Labs: Laboratory Results - last 48 hr 05/02/21 07:10 PT 22.0 H INR 1.9 H Medications Medications Current Medications Acetaminophen (Acetaminophen 325 Mg Tablet) 650 mg PO Q6H PRN PRN Reason: Headache/Pain Mild Scale (1-3) Last Admin: 05/01/21 23:15 Dose: 650 mg Documented by: Al Hydroxide/Mg Hydroxide (Magnesium Hydrox/Alum Hydrox 30 Ml Oral.Susp) 30 ml PO Q6H PRN PRN Reason: Heartburn/Nausea Fluticasone/Vilanterol (Fluticasone/Vilanterol 100/25 Blst.W.Dev) 1 puff INHALE RDAILY [facility] Last Admin: 05/03/21 08:19 Dose: 1 puff Documented by: Hydroxyzine HCl (Hydroxyzine Hcl 25 Mg Tablet) 25 mg PO BEDTIME PRN PRN Reason: Anxiety Last Admin: 05/01/21 21:50 Dose: 25 mg Documented by: Levothyroxine Sodium (Levothyroxine Sodium 75 Mcg Tablet) 75 mcg PO DAILY@0600 [facility] Last Admin: 05/03/21 05:39 Dose: 75 mcg Documented by: Loperamide HCl (Loperamide Hcl 2 Mg Capsule) 2 mg PO Q6H PRN PRN Reason: Diarrhea Magnesium Hydroxide (Milk Of Magnesia 30 Ml Oral.Susp) 30 ml PO DAILY PRN PRN Reason: Constipation Melatonin (Melatonin 3 Mg Tablet) 6 mg PO BEDTIME PRN PRN Reason: Insomnia Last Admin: 05/02/21 21:57 Dose: 6 mg Documented by: Metoprolol Tartrate (Metoprolol Tartrate 50 Mg Tablet) 50 mg PO BID [facility]; Protocol Last Admin: 05/03/21 08:19 Dose: 50 mg Documented by: Mirtazapine (Mirtazapine 15 Mg Tablet) 15 mg PO BEDTIME [facility] Last Admin: 05/02/21 21:58 Dose: 15 mg Documented by: Nystatin (Nystatin Cream 15 Gm Tube) 1 appl TOPICAL BID [facility]; Protocol Last Admin: 05/03/21 10:09 Dose: Not Given Documented by: Oxycodone HCl (Oxycodone Hcl Immed Release 5 Mg Tablet) 5 mg PO Q6H [facility] Psyllium Hydrophilic Mucilloid (Psyllium Seed 3.4 Gm Powd.Pack) 3.4 gm PO BID [facility] Last Admin: 05/03/21 10:09 Dose: Not Given Documented by: Rivaroxaban (Rivaroxaban 20 Mg Tablet) 20 mg PO BEDTIME [facility] Last Admin: 05/02/21 21:58 Dose: 20 mg Documented by: Sodium Chloride (Sodium Chloride 0.65 % Nasal 44 Ml Sprbtl) 1 spray NOSTRIL-B BID PRN PRN Reason: dry nasal passages Last Admin: 05/02/21 22:04 Dose: 1 spray Documented by: Tiotropium [place] (Tiotropium [place] 18 Mcg Cap.W.Dev) 1 puff INHALE RDAILY [facility] Last Admin: 05/03/21 08:19 Dose: 1 puff Documented by: Trazodone HCl (Trazodone Hcl 50 Mg Tablet) 50 mg PO BEDTIME PRN PRN Reason: Insomnia Allergies Allergies Allergy/AdvReac Type Severity Reaction Status Date / Time Penicillins Allergy Unknown Unknown Verified 04/29/21 13:55 Icyhrcn-[id number]-SqB Reductase Allergy Unknown Unknown Verified 04/29/21 14:06 Inhibitor Assessment & Plan Assessment & Plan (1) Decubitus ulcer of coccygeal region, stage 3: Status: Acute Code(s): L89.153 - Pressure ulcer of sacral region, stage 3 Assessment and Plan: Elderly male with a long history of chronic pain, DVT, pulmonary embolism augment the wall lesion with a recent onset of depression after the of her brother in March with a suicidal attempt by overdose on Ambien a few days ago. He has never been admitted into the hospital for psychiatric reasons, he does not have a history of substance abuse but he has been using opioids for pain for quite a long time. Plan 1. Change Oxy to scheduled q6h. 2. Add Colace 100 mg po bid 3. PT/INR for tomorrow. I spent minutes with the patient and/or on the patient floor today, greater than?50% of which was spent counseling/coordinating care. Reason for contiued inpatient stay Substantial Risk for: harm to self, inability to function, rapid decompensation and med/psych decompensation
[2021-05-03 18:00] VITALS: BP 130/80; PULSE 101; RESP 20; TEMP 36.2; O2SAT 95
[2021-05-03] MEDS: Rivaroxaban 20 MG TABLET PO (20:05)
[2021-05-03] MEDS: Docusate Sodium 100 MG CAPSULE PO (20:05)
[2021-05-03] MEDS: Nystatin Cream 15 GM TUBE 1 APPL TOPICAL (20:05)
[2021-05-03] MEDS: Mirtazapine 15 MG TABLET PO (20:05)
[2021-05-03 20:06] VITALS: BP 130/80; PULSE 101
[2021-05-03] MEDS: Milk of Magnesia 30 ML ORAL.SUSP PO (20:17)
[2021-05-04] MEDS: oxyCODONE HCl Immed Release 5 MG TABLET PO ×4 (00:34→20:34)
[2021-05-04 06:00] VITALS: BP 105/67; PULSE 114; TEMP 35.7; O2SAT 94
[2021-05-04] MEDS: Levothyroxine Sodium 75 MCG TABLET PO (06:39)
[2021-05-04 07:45] LABS: INTERNATIONAL NORM RATIO 1.7 (0.9-1.1); Prothrombin Time 20.1 SEC (9.9-13.0)
[2021-05-04 09:01] VITALS: BP 105/67; PULSE 114
[2021-05-04] MEDS: Docusate Sodium 100 MG CAPSULE PO (09:01)
[2021-05-04] MEDS: Sodium Chloride 0.65 % Nasal 44 ML SPRBTL 1 SPRAY NOSTRIL-B (09:01)
[2021-05-04] MEDS: Metoprolol Tartrate 50 MG TABLET PO ×2 (09:01→20:33)
--- NOTE | 2021-05-04 12:32 | P.PNPSI_ITS ---
Subjective Subjective Date of Service: 05/04/21 Reason For Visit: suicidal attempt Subjective Notes: Conditional Voluntary Interim History: The nursing staff reported that the patient has a lesion level 3 on the buttocks and he has been using opioids q.6 hours. He denies new bowel movements, constipation most likely due to opioids. The sr. social media & mobile manager reported that they had a family meeting with her friend her friend's daughter and apparently he was not comfortable to moved to floor in them. On interview, the patient reported that his main problem is pain and he is eager to be discharged on Sunday. Mental Status Exam Mental Status Exam Patient Appearance: Disheveled and Unkempt Level of Consciousness: Awake Patient Behavior: Guarded and Cooperative Mood Description: Constricted Affect Description: Depressed Patient Cognition Impaired: No Ability to Follow Directions: Good Speech Pattern: Clear Hallucinations: None Delusions: Not Present Thought Process: Linear Thought Content: positive for Circumstantial Depressive Symptoms: Increased Anxiety, Difficulty Sleeping and Changes in Appetite Judgement: Fair Diagnostics Vital Signs (24Hr): Vital Signs - 24 hr 05/03/21 18:00 05/03/21 20:06 05/04/21 06:00 Temperature 97.1 F 96.3 F L Pulse Rate 101 H 101 H 114 H Respiratory Rate 20 Blood Pressure 130/80 130/80 105/67 Pulse Oximetry 95 94 05/04/21 09:01 Temperature Pulse Rate 114 H Respiratory Rate Blood Pressure 105/67 Pulse Oximetry Body Mass Index 31.2 Labs Labs: Laboratory Results - last 48 hr 05/04/21 07:24 PT 20.1 H INR 1.7 H Medications Medications Current Medications Acetaminophen (Acetaminophen 325 Mg Tablet) 650 mg PO Q6H PRN PRN Reason: Headache/Pain Mild Scale (1-3) Last Admin: 05/01/21 23:15 Dose: 650 mg Documented by: Al Hydroxide/Mg Hydroxide (Magnesium Hydrox/Alum Hydrox 30 Ml Oral.Susp) 30 ml PO Q6H PRN PRN Reason: Heartburn/Nausea Docusate Sodium (Docusate Sodium 100 Mg Capsule) 100 mg PO BID [facility] Last Admin: 05/04/21 09:01 Dose: 100 mg Documented by: Fluticasone/Vilanterol (Fluticasone/Vilanterol 100/25 Blst.W.Dev) 1 puff INHALE RDAILY [facility] Last Admin: 05/04/21 09:05 Dose: Not Given Documented by: Hydroxyzine HCl (Hydroxyzine Hcl 25 Mg Tablet) 25 mg PO BEDTIME PRN PRN Reason: Anxiety Last Admin: 05/01/21 21:50 Dose: 25 mg Documented by: Levothyroxine Sodium (Levothyroxine Sodium 75 Mcg Tablet) 75 mcg PO DAILY@0600 [facility] Last Admin: 05/04/21 06:39 Dose: 75 mcg Documented by: Loperamide HCl (Loperamide Hcl 2 Mg Capsule) 2 mg PO Q6H PRN PRN Reason: Diarrhea Magnesium Hydroxide (Milk Of Magnesia 30 Ml Oral.Susp) 30 ml PO DAILY PRN PRN Reason: Constipation Last Admin: 05/03/21 20:17 Dose: 30 ml Documented by: Melatonin (Melatonin 3 Mg Tablet) 6 mg PO BEDTIME PRN PRN Reason: Insomnia Last Admin: 05/02/21 21:57 Dose: 6 mg Documented by: Metoprolol Tartrate (Metoprolol Tartrate 50 Mg Tablet) 50 mg PO BID [facility]; Protocol Last Admin: 05/04/21 09:01 Dose: 50 mg Documented by: Mirtazapine (Mirtazapine 15 Mg Tablet) 15 mg PO BEDTIME [facility] Last Admin: 05/03/21 20:05 Dose: 15 mg Documented by: Nystatin (Nystatin Cream 15 Gm Tube) 1 appl TOPICAL BID [facility]; Protocol Last Admin: 05/04/21 10:37 Dose: Not Given Documented by: Oxycodone HCl (Oxycodone Hcl Immed Release 5 Mg Tablet) 5 mg PO Q6H [facility] Last Admin: 05/04/21 06:38 Dose: 5 mg Documented by: Psyllium Hydrophilic Mucilloid (Psyllium Seed 3.4 Gm Powd.Pack) 3.4 gm PO BID S Last Admin: 05/04/21 10:37 Dose: Not Given Documented by: Rivaroxaban (Rivaroxaban 20 Mg Tablet) 20 mg PO BEDTIME [facility] Last Admin: 05/03/21 20:05 Dose: 20 mg Documented by: Sodium Chloride (Sodium Chloride 0.65 % Nasal 44 Ml Sprbtl) 1 spray NOSTRIL-B BID PRN PRN Reason: dry nasal passages Last Admin: 05/04/21 09:01 Dose: 1 spray Documented by: Tiotropium [place] (Tiotropium [place] 18 Mcg Cap.W.Dev) 1 puff INHALE DAJA FISCHER Last Admin: 05/04/21 09:05 Dose: Not Given Documented by: Trazodone HCl (Trazodone Hcl 50 Mg Tablet) 50 mg PO BEDTIME PRN PRN Reason: Insomnia Allergies Allergies Allergy/AdvReac Type Severity Reaction Status Date / Time Penicillins Allergy Unknown Unknown Verified 04/29/21 13:55 Rrfslxb-[id number] Reductase Allergy Unknown Unknown Verified 04/29/21 14:06 Inhibitor Assessment & Plan Assessment & Plan (1) Decubitus ulcer of coccygeal region, stage 3: Status: Acute Code(s): L89.153 - Pressure ulcer of sacral region, stage 3 Assessment and Plan: Elderly male with a long history of chronic pain, DVT, pulmonary embolism augment the wall lesion with a recent onset of depression after the of her brother in March with a suicidal attempt by overdose on Ambien a few days ago. He has never been admitted into the hospital for psychiatric reasons, he does not have a history of substance abuse but he has been using opioids for pain for quite a long time. Plan 1. Change Oxy to scheduled q6h. 2. Add Colace 100 mg po bid 3. PT/INR for Sunday. I spent minutes with the patient and/or on the patient floor today, greater than?50% of which was spent counseling/coordinating care. Reason for contiued inpatient stay Substantial Risk for: harm to self, inability to function, rapid decompensation and med/psych decompensation
--- NOTE | 2021-05-04 16:03 | MHC.CLN ---
F/U STAGE II COCCYX WOUND PER WOUND ASSESSMENT. PATIENT STATED THAT ENSURE TID WAS TOO MUCH FOOD. CHANGING TO ENSURE BID AND PREFERS [facility], PROVIDES 700 KCAL, 32 G PROTEIN.
[2021-05-04 18:00] VITALS: BP 120/65; PULSE 94; RESP 20; TEMP 36; O2SAT 95
[2021-05-04 20:33] VITALS: BP 120/65; PULSE 94
[2021-05-04] MEDS: Mirtazapine 15 MG TABLET PO (20:33)
[2021-05-04] MEDS: Rivaroxaban 20 MG TABLET PO (20:33)
[2021-05-04] MEDS: Melatonin 3 MG TABLET 6 MG PO (21:44)
[2021-05-05] MEDS: oxyCODONE HCl Immed Release 5 MG TABLET PO ×4 (00:59→19:49)
[2021-05-05] MEDS: Levothyroxine Sodium 75 MCG TABLET PO (05:56)
[2021-05-05 06:00] VITALS: BP 117/20; PULSE 91; RESP 18; TEMP 36.6; O2SAT 95
[2021-05-05 07:00] VITALS: BMI 30.5
[2021-05-05 08:27] VITALS: BP 117/80; PULSE 91
[2021-05-05] MEDS: Metoprolol Tartrate 50 MG TABLET PO ×2 (08:27→19:50)
[2021-05-05] MEDS: Docusate Sodium 100 MG CAPSULE PO (08:28)
--- NOTE | 2021-05-05 13:13 | P.PNPSI_ITS ---
Subjective Subjective Date of Service: 05/05/21 Reason For Visit: suicidal attempt Subjective Notes: Conditional Voluntary Interim History: The nursing staff reported that the patient has being compliant with treatment, isolative but he denied suicidal ideation. On interview, the patient complained of chronic pain and mild dysphoria. No side effects with current medication Mental Status Exam Mental Status Exam Patient Appearance: Well Grooomed Patient Orientation: Person Level of Consciousness: Awake Patient Behavior: Guarded and Passive Mood Description: Depressed Affect Description: Constricted Patient Cognition Impaired: Yes Ability to Follow Directions: Good Speech Pattern: Appropriate Hallucinations: None Delusions: Not Present Thought Process: Linear Thought Content: positive for Circumstantial Depressive Symptoms: Difficulty Sleeping Judgement: Fair Diagnostics Vital Signs (24Hr): Vital Signs - 24 hr 05/04/21 18:00 05/04/21 20:33 05/05/21 06:00 Temperature 96.8 F 98 F Pulse Rate 94 94 91 Respiratory Rate 20 18 Blood Pressure 120/65 120/65 117/20 L Pulse Oximetry 95 95 05/05/21 08:27 Temperature Pulse Rate 91 Respiratory Rate Blood Pressure 117/80 Pulse Oximetry Body Mass Index 31.2 Labs Labs: Laboratory Results - last 48 hr 05/04/21 07:24 PT 20.1 H INR 1.7 H Medications Medications Current Medications Acetaminophen (Acetaminophen 325 Mg Tablet) 650 mg PO Q6H PRN PRN Reason: Headache/Pain Mild Scale (1-3) Last Admin: 05/01/21 23:15 Dose: 650 mg Documented by: Al Hydroxide/Mg Hydroxide (Magnesium Hydrox/Alum Hydrox 30 Ml Oral.Susp) 30 ml PO Q6H PRN PRN Reason: Heartburn/Nausea Docusate Sodium (Docusate Sodium 100 Mg Capsule) 100 mg PO BID [facility] Last Admin: 05/05/21 08:28 Dose: 100 mg Documented by: Fluticasone/Vilanterol (Fluticasone/Vilanterol 100/25 Blst.W.Dev) 1 puff INHALE RDAILY [facility] Last Admin: 05/05/21 08:29 Dose: Not Given Documented by: Hydroxyzine HCl (Hydroxyzine Hcl 25 Mg Tablet) 25 mg PO BEDTIME PRN PRN Reason: Anxiety Last Admin: 05/01/21 21:50 Dose: 25 mg Documented by: Levothyroxine Sodium (Levothyroxine Sodium 75 Mcg Tablet) 75 mcg PO DAILY@0600 [facility] Last Admin: 05/05/21 05:56 Dose: 75 mcg Documented by: Loperamide HCl (Loperamide Hcl 2 Mg Capsule) 2 mg PO Q6H PRN PRN Reason: Diarrhea Magnesium Hydroxide (Milk Of Magnesia 30 Ml Oral.Susp) 30 ml PO DAILY PRN PRN Reason: Constipation Last Admin: 05/03/21 20:17 Dose: 30 ml Documented by: Melatonin (Melatonin 3 Mg Tablet) 6 mg PO BEDTIME PRN PRN Reason: Insomnia Last Admin: 05/04/21 21:44 Dose: 6 mg Documented by: Metoprolol Tartrate (Metoprolol Tartrate 50 Mg Tablet) 50 mg PO BID [facility]; Protocol Last Admin: 05/05/21 08:27 Dose: 50 mg Documented by: Mirtazapine (Mirtazapine 15 Mg Tablet) 15 mg PO BEDTIME [facility] Last Admin: 05/04/21 20:33 Dose: 15 mg Documented by: Nystatin (Nystatin Cream 15 Gm Tube) 1 appl TOPICAL BID [facility]; Protocol Last Admin: 05/04/21 20:36 Dose: Not Given Documented by: Oxycodone HCl (Oxycodone Hcl Immed Release 5 Mg Tablet) 5 mg PO Q6H [facility] Last Admin: 05/05/21 06:44 Dose: 5 mg Documented by: Psyllium Hydrophilic Mucilloid (Psyllium Seed 3.4 Gm Powd.Pack) 3.4 gm PO BID [facility] Last Admin: 05/05/21 08:29 Dose: Not Given Documented by: Rivaroxaban (Rivaroxaban 20 Mg Tablet) 20 mg PO BEDTIME [facility] Last Admin: 05/04/21 20:33 Dose: 20 mg Documented by: Sodium Chloride (Sodium Chloride 0.65 % Nasal 44 Ml Sprbtl) 1 spray NOSTRIL-B BID PRN PRN Reason: dry nasal passages Last Admin: 05/04/21 09:01 Dose: 1 spray Documented by: Tiotropium [place] (Tiotropium [place] 18 Mcg Cap.W.Dev) 1 puff INHALE RDAILY [facility] Last Admin: 05/05/21 08:29 Dose: Not Given Documented by: Trazodone HCl (Trazodone Hcl 50 Mg Tablet) 50 mg PO BEDTIME PRN PRN Reason: Insomnia Allergies Allergies Allergy/AdvReac Type Severity Reaction Status Date / Time Penicillins Allergy Unknown Unknown Verified 04/29/21 13:55 [id number]-[id number] Reductase Allergy Unknown Unknown Verified 04/29/21 14:06 Inhibitor Assessment & Plan Assessment & Plan (1) Decubitus ulcer of coccygeal region, stage 3: Status: Acute Code(s): L89.153 - Pressure ulcer of sacral region, stage 3 Assessment and Plan: Elderly male with a long history of chronic pain, DVT, pulmonary embolism augment the wall lesion with a recent onset of depression after the of her brother in March with a suicidal attempt by overdose on Ambien a few days ago. He has never been admitted into the hospital for psychiatric reas ons, he does not have a history of substance abuse but he has been using opioids for pain for quite a long time. Plan 1. Change Oxy to scheduled q6h. 2. Add Colace 100 mg po bid 3. Prepare discharge planning for tomorrow I spent minutes with the patient and/or on the patient floor today, greater than?50% of which was spent counseling/coordinating care. Reason for contiued inpatient stay Substantial Risk for: inability to function, rapid decompensation and med/psych decompensation
--- NOTE | 2021-05-05 15:21 | P.DS_ITS ---
DS: Providers Provider Date of Service: 05/06/21 Date of admission: 05/01/21 14:01 Date of discharge: 05/06/21 Primary care physician: Unknown Physician Admitting clinician: Marcio Rosenbaum Attending physician on discharge: Marcio Rosenbaum DS: Medications Discharge Medications Home Medications: Home Medications Medication Instructions Recorded Confirmed levothyroxine 75 mcg tablet 75 mcg PO DAILY 04/29/21 05/01/21 metoprolol tartrate 50 mg tablet 50 mg PO BID 04/29/21 05/01/21 rivaroxaban 20 mg tablet (Xarelto) 20 mg PO BEDTIME 04/29/21 05/01/21 oxycodone [id number] 2.5 mg PO Q4-6H PRN 05/01/21 05/01/21 Previous Rx's Medication Instructions Recorded acetaminophen 325 mg tablet 650 mg PO Q6H PRN #60 tab 05/01/21 fluticasone furoate 100 1 puff INHALATION RDAILY #1 ea 05/01/21 mcg-vilanterol 25 mcg/dose inhalation powder (Breo Ellipta) loperamide 2 mg capsule 2 mg PO Q6H PRN #20 cap 05/01/21 melatonin 3 mg tablet 6 mg PO BEDTIME PRN #1 tab 05/01/21 nystatin 100,000 unit/gram topical 1 appl TOPICAL BID #1 g 05/01/21 cream psyllium husk 3.4 gram/5.4 gram 1 tbsp PO BID #660 g 05/01/21 oral powder (Metamucil) sodium chloride 0.65 % nasal spray 1 spray INTRANASAL BID PRN #15 ml 05/01/21 aerosol ([place] Nasal) tiotropium bromide 18 mcg capsule 18 mcg INHALATION RDAILY #1 inh 05/01/21 with inhalation device (Spiriva with HandiHaler) Mental Status Exam Mental Status Exam Patient Appearance: Well Grooomed Patient Orientation: Person and Situation Level of Consciousness: Awake and Appropriate Patient Behavior: Cooperative and Passive Mood Description: Depressed Affect Description: Constricted Patient Cognition Impaired: No Ability to Follow Directions: Good Speech Pattern: Clear Memory Description: Intact Hallucinations: None Delusions: Not Present Thought Process: Linear Thought Content: positive for Intact and positive for Circumstantial Depressive Symptoms: Increased Anxiety, Difficulty Sleeping and Feelings of Wo rthlessness Judgement: Fair Data Data Completed and Pending Completed studies during hospitalization [Text1]: 05/02/21 05/04/21 07:10 07:24 PT 22.0 H 20.1 H INR 1.9 H 1.7 H DS: Summary Hospital Course Hospital Course: The patient was initially admitted into the hospital to the medical floor due to an overdose of Ambien in a suicidal attempt. Please see HPI of the admission notes for more details. After being medically cleared for the intentional overdose of Ambien, the patient was assessed by the crisis team and transferred to this facility for psychiatric stabilization. According to the patient and patient's family, he has been more depressed since March this year after the passing of his brother and the family is planning to move to [place] definitely. The patient felt more dysphoric, he wrote emails and texts saying goodbye and he took an overdose of Ambien. On intake, the patient denies prior psychiatric treatment or encounters, he denied substance abuse He adamantly denies psychotic symptoms or mood lability. We discussed risks, benefits, side-effects and alternatives and he agreed to start Remeron titrated slowly up to 15 mg p.o. q.h.s. to target depression and insomnia. 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 The patient was able to contract for safety, he started taking Remeron without side effects and since he was able to contract for safety and he has a good social support provided by his partner and partner's family discharge planning was discussed. Time spent discussing smoking cessation with patient: 3 to 10 minutes Status at Discharge Cognitive/behavioral status at discharge: At baseline Functional status at discharge: uses cane/walker Overall status at discharge: patient is back to baseline Time Spent with Patient Time attestation: Total time spent providing and/or coordinating discharge s ervices: Time spent: Less than 30 minutes Discharge Plan Discharge Anticipated Discharge Date/Time: 05/06/21 13:00 Patient Disposition: Home, Self-Care Discharge Diagnosis: Major depressive disorder single episode severe Referrals: Ca Saini NP @ [facility] [Other] - 05/26/21 3:15 pm (Appointment scheduled for , 05/26/21 @ 3:15 PM IN OFFICE visit, please arrive 40 minutes early to complete paperwork.) Physician,Nonstaff [Physician] - 05/31/21 3:30 pm (Dr Jose Vo P: [phone] Appt for 05/31/2021 @ 3:30 PM ) Discharge Medications: New mirtazapine 15 mg Tablet 15 mg PO BEDTIME 30 Days Qty: 30 RF: 0 oxycodone 5 mg Tablet 5 mg PO Q6H 10 Days Qty: 40 RF: 0 (DME) gauze bandage 4 X 4 bandage See Rx Instructions .Route Qty: 10 RF: 0 Continued levothyroxine 75 mcg tablet 75 mcg PO DAILY RF: 0 metoprolol tartrate 50 mg tablet 50 mg PO BID RF: 0 Xarelto 20 mg tablet 20 mg PO BEDTIME RF: 0 acetaminophen 325 mg Tablet 650 mg PO Q6H PRN (Reason: Pain, Mild (Pain Scale 1-3)) Qty: 60 RF: 0 loperamide 2 mg Capsule 2 mg PO Q6H PRN (Reason: Diarrhea) Qty: 20 RF: 0 melatonin 3 mg Tablet 6 mg PO BEDTIME PRN (Reason: Insomnia) Qty: 1 RF: 0 nystatin 100,000 unit/gram Cream 1 appl topical BID Qty: 1 RF: 0 Spiriva with HandiHaler 18 mcg Capsule, W/Inhalation Device 18 mcg inhalation RDAILY Qty: 1 RF: 0 Breo Ellipta 100-25 mcg/dose Blister With Device 1 puff inhalation RDAILY Qty: 1 RF: 0 sodium chloride [[place] Nasal] 0.65 % aerosol,spray 1 spray intranasal BID PRN (Reason: dry nasal passages) Qty: 15 RF: 0 Metamucil 3.4 gram/5.4 gram powder 1 tbsp PO BID Qty: 660 RF: 0 Discontinued oxycodone [id number] tablet 2.5 mg PO Q4-6H PRN (Reason: Pain, Moderate) RF: 0 Discharge Orders: Discharge Order (Routine); Ordered 05/06/21 Ordered By: Marcio Rosenbaum Diet: advance to usual diet Activity on Discharge: As tolerated Stand Alone Forms: Patient Portal Discharge page Care Plan Goals: Care plan goals achieved on the admission Health Concerns: Continue medical treatment by primary care physician Plan of Treatment: Continue psychiatric treatment by prescriber as an outpatient. Referral to psychotherapy as necessary Assessment: The patient is an 80-year-old male, with a long history of several medical comorbidities admitted from intentional overdose of Ambien in the context of grieving. The patient is at this moment future oriented, with good social support and he is able to contract for safety. Discharge planning was discussed
[2021-05-05 16:35] VITALS: BP 128/67; PULSE 86; RESP 17; TEMP 36.2; O2SAT 96
[2021-05-05 19:30] VITALS: BP 137/74; PULSE 89; RESP 20; TEMP 36.4; O2SAT 96
[2021-05-05 19:50] VITALS: BP 137/74; PULSE 89
[2021-05-05] MEDS: Rivaroxaban 20 MG TABLET PO (19:51)
[2021-05-05] MEDS: Mirtazapine 15 MG TABLET PO (19:51)
[2021-05-05] MEDS: Melatonin 3 MG TABLET 6 MG PO (19:52)
[2021-05-06] MEDS: oxyCODONE HCl Immed Release 5 MG TABLET PO ×3 (01:14→12:38)
[2021-05-06] MEDS: Levothyroxine Sodium 75 MCG TABLET PO (06:46)
--- NOTE | 2021-05-06 07:21 | PC.NURSE ---
Dr. Morgan notified poc 365 and 10 ux of humolog sc given to coverage. no new orders.
[2021-05-06 10:04] VITALS: BP 129/64; PULSE 110; RESP 17; TEMP 36.6; O2SAT 95
[2021-05-06] MEDS: Sodium Chloride 0.65 % Nasal 44 ML SPRBTL 1 SPRAY NOSTRIL-B (10:07)
[2021-05-06 10:10] VITALS: BP 129/64; PULSE 110
[2021-05-06] MEDS: Metoprolol Tartrate 50 MG TABLET PO (10:10)
--- NOTE | 2021-05-06 12:32 | P.PNPSI_ITS ---
Subjective Subjective Date of Service: 05/06/21 Reason For Visit: suicidal attempt Interim History: Pt reports feeling better in that he is no suicidal. He reports less depression. he is looking forward to be discharged today. He reports chronic pain and some frustration as medication only provide minimal benefit. Pt reports sleeping and eating well. He asks directions of discharge be given to significant others as he admits his memory not the best. Pt is well groomed, future oriented. No Signs of aggression towards self or others. Review of Systems Review of Systems No chest pain or shortness of breath is reported. Yes all other systems are reviewed and are negative Mental Status Exam Mental Status Exam Patient Appearance: Well Grooomed Patient Orientation: Person and Situation Level of Consciousness: Awake and Appropriate Patient Behavior: Cooperative and Passive Mood Description: Depressed Affect Description: Constricted Patient Cognition Impaired: No Ability to Follow Directions: Good Speech Pattern: Clear Memory Description: Intact Diagnostics Vital Signs (24Hr): Vital Signs - 24 hr 05/05/21 16:35 05/05/21 19:30 05/05/21 19:50 Temperature 97.2 F 97.5 F Pulse Rate 86 89 89 Respiratory Rate 17 20 Blood Pressure 128/67 137/74 137/74 Pulse Oximetry 96 96 05/06/21 10:04 05/06/21 10:10 Temperature 97.8 F Pulse Rate 110 H 110 H Respiratory Rate 17 Blood Pressure 129/64 129/64 Pulse Oximetry 95 Body Mass Index 30.5 Medications Medications Current Medications Acetaminophen (Acetaminophen 325 Mg Tablet) 650 mg PO Q6H PRN PRN Reason: Headache/Pain Mild Scale (1-3) Last Admin: 05/01/21 23:15 Dose: 650 mg Documented by: Al Hydroxide/Mg Hydroxide (Magnesium Hydrox/Alum Hydrox 30 Ml Oral.Susp) 30 ml PO Q6H PRN PRN Reason: Heartburn/Nausea Docusate Sodium (Docusate Sodium 100 Mg Capsule) 100 mg PO BID [facility] Last Admin: 05/06/21 10:08 Dose: Not Given Documented by: Fluticasone/Vilanterol (Fluticasone/Vilanterol 100/25 Blst.W.Dev) 1 puff INHALE RDAILY [facility] Last Admin: 05/06/21 10:09 Dose: Not Given Documented by: Hydroxyzine HCl (Hydroxyzine Hcl 25 Mg Tablet) 25 mg PO BEDTIME PRN PRN Reason: Anxiety Last Admin: 05/01/21 21:50 Dose: 25 mg Documented by: Levothyroxine Sodium (Levothyroxine Sodium 75 Mcg Tablet) 75 mcg PO DAILY@0600 [facility] Last Admin: 05/06/21 06:46 Dose: 75 mcg Documented by: Loperamide HCl (Loperamide Hcl 2 Mg Capsule) 2 mg PO Q6H PRN PRN Reason: Diarrhea Magnesium Hydroxide (Milk Of Magnesia 30 Ml Oral.Susp) 30 ml PO DAILY PRN PRN Reason: Constipation Last Admin: 05/03/21 20:17 Dose: 30 ml Documented by: Melatonin (Melatonin 3 Mg Tablet) 6 mg PO BEDTIME PRN PRN Reason: Insomnia Last Admin: 05/05/21 19:52 Dose: 6 mg Documented by: Metoprolol Tartrate (Metoprolol Tartrate 50 Mg Tablet) 50 mg PO BID [facility]; Protocol Last Admin: 05/06/21 10:10 Dose: 50 mg Documented by: Mirtazapine (Mirtazapine 15 Mg Tablet) 15 mg PO BEDTIME [facility] Last Admin: 05/05/21 19:51 Dose: 15 mg Documented by: Nystatin (Nystatin Cream 15 Gm Tube) 1 appl TOPICAL BID [facility]; Protocol Last Admin: 05/06/21 10:09 Dose: Not Given Documented by: Oxycodone HCl (Oxycodone Hcl Immed Release 5 Mg Tablet) 5 mg PO Q6H [facility] Last Admin: 05/06/21 06:45 Dose: 5 mg Documented by: Psyllium Hydrophilic Mucilloid (Psyllium Seed 3.4 Gm Powd.Pack) 3.4 gm PO BID [facility] Last Admin: 05/06/21 10:09 Dose: 3.4 gm Documented by: Rivaroxaban (Rivaroxaban 20 Mg Tablet) 20 mg PO BEDTIME [facility] Last Admin: 05/05/21 19:51 Dose: 20 mg Documented by: Sodium Chloride (Sodium Chloride 0.65 % Nasal 44 Ml Sprbtl) 1 spray NOSTRIL-B BID PRN PRN Reason: dry nasal passages Last Admin: 05/06/21 10:07 Dose: 1 spray Documented by: Tiotropium [place] (Tiotropium [place] 18 Mcg Cap.W.Dev) 1 puff INHALE RDAILY [facility] Last Admin: 05/06/21 10:09 Dose: Not Given Documented by: Trazodone HCl (Trazodone Hcl 50 Mg Tablet) 50 mg PO BEDTIME PRN PRN Reason: Insomnia Allergies Allergies Allergy/AdvReac Type Severity Reaction Status Date / Time Penicillins Allergy Unknown Unknown Verified 04/29/21 13:55 Elourtt-KAG-RiA Reductase Allergy Unknown Unknown Verified 04/29/21 14:06 Inhibitor Assessment & Plan Assessment & Plan (1) Major depressive disorder: Status: Acute Code(s): F32.9 - Major depressive disorder, single episode, unspecified Assessment and Plan: Elderly male with a long history of chronic pain, DVT, pulmonary embolism augment the wall lesion with a recent onset of depression after the of her brother in March with a suicidal attempt by overdose on Ambien a few days ago. He has never been admitted into the hospital for psychiatric reasons, he does not have a history of substance abuse but he has been using opioids for pain for quite a long time. Plan 1. Change Oxy to scheduled q6h. 2. Add Colace 100 mg po bid 3. Prepare discharge planning for tomorrow I spent minutes with the patient and/or on the patient floor today, greater than?50% of which was spent counseling/coordinating care. Reason for contiued inpatient stay Substantial Risk for: stable for discharge
--- NOTE | 2021-05-06 13:22 | MHC.CLN ---
F/U WOUND STAGE III TO COCCYX PER WOUND ASSESSMENT AND STAGE II TO COCCYX PER SHIFT ASSESSMENT. VISITED PATIENT AT LUNCH. EATING WELL. CONTINUE REGULAR DIET AND ENSURE BID.
--- NOTE | 2021-05-06 15:05 | PC.NURSE ---
Patient and family were educated on discharge teaching and instructions. Patient pleasant and cooperative upon approach. Patient Reports that sleep and appetition is good . Patient denies SI/HI/AH/VH. Patient stated I feel safe to go home . patients Vital signs were within normal limits. Patient denied complaints. patient and significant other educated on dressing changes. Patient Left unit in wheelchair with RN and family.
== END 2021-05-06 13:40 | disposition home or self-care (01) | DRG 885 ==
PROVIDERS: Admitting Provider Psychiatry & Neurology Psychiatry; Visit Provider Psychiatry & Neurology Psychiatry
DX: F32.2 Major depressive disorder, single episode, severe without psychotic features (principal); L89.153 Pressure ulcer of sacral region, stage 3; I48.91 Unspecified atrial fibrillation; Z79.01 Long term (current) use of anticoagulants; Z91.51 Personal history of suicidal behavior; Z88.0 Allergy status to penicillin; Z79.890 Hormone replacement therapy; Z79.899 Other long term (current) drug therapy
CPT/HCPCS: 36415; 85610